=== PATIENT | male | born 1945 | race African-American/Black ===

== ENCOUNTER → 2019-12-30 | Outpatient (CLI) | payer BC | END | disposition home or self-care (01) | LOC: LAB 10:31 | PROVIDERS: ATTEND Specialist | DX: Z01.812 Encounter for preprocedural laboratory examination (principal); R05 Cough; Z20.828 Contact with and (suspected) exposure to other viral communicable diseases | CPT/HCPCS: C9803; U0003 ==

== ENCOUNTER → 2020-01-06 | Outpatient (CLI) | payer BC, OTHER ==
[~2020-01-06] MED LIST: AMLO5TAB88 PO; APIX5TAB PO; ASPI-1497 MT; DOXA1TAB2 PO; DUTA1CPM4 MT; HYDR12.54 MT; OLME20TA13 PO
== END | disposition home or self-care (01) ==
LOC: LAB 08:55
PROVIDERS: ATTEND Specialist
DX: Z01.812 Encounter for preprocedural laboratory examination (principal); Z20.828 Contact with and (suspected) exposure to other viral communicable diseases
CPT/HCPCS: C9803; U0003

== ENCOUNTER 2020-01-07 09:20 | Day surgery (SDC) | payer BC, OTHER ==
[~2020-01-07] VITALS: Ht 182.9 cm; Wt 127.0 kg
[2020-01-07] MEDS ORDERED: MIDAZOLAM HCL 2 MG/2 ML VIAL ONE ×2 (09:29→10:06)
[2020-01-07] MEDS ORDERED: FENTANYL CITRATE/PF 50MCG/ML 2ML VIAL ONE (09:29)
[2020-01-07] MEDS ORDERED: NICARDIPINE 100MCG/ML 10ML VIAL (CATH LAB) IV ONE (09:30)
[2020-01-07] MEDS ORDERED: IODIXANOL 320MG/ML 100 ML BOTTLE IV ONE (09:30)
[2020-01-07] MEDS ORDERED: NITROGLYCERIN 50MCG/ML 10ML VIAL (CATH LAB) IV ONE (09:30)
[2020-01-07] MEDS ORDERED: LIDOCAINE HCL 1% 20ML VIAL (Pyxis) INJ ONE (09:30)
[2020-01-07] MEDS ORDERED: HEPARIN SODIUM 1,000 UNIT/1ML VIAL IV ONE (09:30)
[2020-01-07] MEDS ORDERED: MORPHINE SULFATE 2 MG/ML CPJ (NOT FOR IM USE) IV PRN (10:45)
[2020-01-07] MEDS ORDERED: ATROPINE SULFATE 1MG/10ML SYR IV PRN (10:45)
[2020-01-07] MEDS ORDERED: ACETAMINOPHEN 325MG TABLET PO PRN (10:45)
[2020-01-07] MEDS ORDERED: ONDANSETRON HCL 4MG/2ML INJ IV PRN (10:45)
== END 2020-01-07 15:20 | disposition home or self-care (01) ==
LOC: CCL 09:20
PROVIDERS: ATTEND Specialist
DX: I25.10 Atherosclerotic heart disease of native coronary artery without angina pectoris (principal); I10 Essential (primary) hypertension; I48.91 Unspecified atrial fibrillation; E78.2 Mixed hyperlipidemia; G47.33 Obstructive sleep apnea (adult) (pediatric); E66.9 Obesity, unspecified; Z79.82 Long term (current) use of aspirin; Z79.899 Other long term (current) drug therapy; Z98.890 Other specified postprocedural states; Z68.38 Body mass index [BMI] 38.0-38.9, adult
CPT/HCPCS: 93454; C1769; C1887; C1893; J1644; J2250; J3010; J3490; Q9967

== ENCOUNTER 2020-12-15 15:09 | Emergency (ER) | payer BC, OTHER ==
[~2020-12-15] VITALS: Ht 185.4 cm; Wt 122.5 kg
[2020-12-15] MEDS ORDERED: ONDANSETRON HCL 4MG/2ML INJ IV STA (16:25)
[2020-12-15] MEDS ORDERED: MORPHINE SULFATE 4 MG/ML CPJ (NOT FOR IM USE) IV STA (16:25)
[2020-12-15] MEDS ORDERED: SODIUM CHLORIDE 0.9% 1,000 ML IV ONE (16:30)
[2020-12-15] MEDS ORDERED: AMLODIPINE 5MG TABLET PO SCH (16:30)
[2020-12-15 16:52] LABS: BASOPHILS % 0.5 % (0.0-2.0); EOSINOPHILS % 0.1 % (0.0-5.0); HEMATOCRIT. 30.6 % (42.0-52.0); HEMOGLOBIN. 10.1 g/dL (14.0-18.0); LYMPHOCYTES % 7.1 % (20.0-50.0); MEAN CORPUSCULAR HEMOGLOBIN 24.4 pg (28.0-32.0); MEAN PLATELET VOLUME 7.6 fl (7.4-10.4); NEUTROPHILS % 81.3 % (40.0-76.0); PLATELET 251 x1000/uL (130-400); RED BLOOD CELL COUNT 4.13 mill/uL (4.7-6.1); RED CELL DISTRIBUTION WIDTH 17.9 % (11.6-14.6)
[2020-12-15 16:58] LABS: CHLORIDE 105 mEq/L (98-107)
[2020-12-15 17:42] LABS: CLARITY URINE CLEAR (CLEAR); COLOR URINE YELLOW (YELLOW); KETONES URINE NEGATIVE (NEGATIVE); LEUKOCYTE ESTERASE URINE TRACE (NEGATIVE); NITRITE URINE NEGATIVE (NEGATIVE); OCCULT BLOOD URINE TRACE (NEGATIVE); PROTEIN URINE TRACE (NEGATIVE); SPECIFIC GRAVITY URINE 1.015 (1.005-1.030)
[2020-12-15 17:52] LABS: *AMPHETAMINES SCREEN URINE NEGATIVE (NEGATIVE); *BARBITURATES SCREEN URINE NEGATIVE (NEGATIVE); *BENZODIAZEPINES SCREEN URINE NEGATIVE (NEGATIVE); *COCAINE SCREEN URINE NEGATIVE (NEGATIVE)
[2020-12-15 17:53] LABS: CANNABINOID URINE SCREEN NEGATIVE (NEGATIVE); METHADONE URINE SCREEN NEGATIVE (NEGATIVE); OPIATES URINE SCREEN NEGATIVE (NEGATIVE); PHENCYCLIDINE URINE SCREEN NEGATIVE (NEGATIVE)
[2020-12-15] MEDS ORDERED: IBUP-2028 MT (20:15)
[2020-12-15] MEDS ORDERED: CIPR500T5 MT (20:18)
[2020-12-15] MEDS ORDERED: ACET-2708 MT (20:20)
[2020-12-15 20:45] VITALS: BP 127/56
[2020-12-16] MEDS ORDERED: METOPROLOL TARTRATE 25MG TABLET PO SCH (09:00)
== END 2020-12-15 21:43 | disposition home or self-care (01) ==
LOC: ER 15:09
DX: M79.89 Other specified soft tissue disorders (principal); N39.0 Urinary tract infection, site not specified; I10 Essential (primary) hypertension; Z79.899 Other long term (current) drug therapy; Z79.82 Long term (current) use of aspirin
CPT/HCPCS: 36415; 71045; 74176; 80053; 80305; 81003; 83690; 83880; 85025; 93005; 93970; 96360; 96361; 99285; J7030

== ENCOUNTER 2020-12-20 12:02 | Inpatient (IN) | payer BC, OTHER ==
[~2020-12-20] VITALS: Ht 182.9 cm; Wt 113.4 kg
[~2020-12-20 12:02] MED LIST changes: +ACET-2708 MT; +CIPR500T5 MT; +IBUP-2028 MT
[2020-12-20] MEDS ORDERED: SODIUM CHLORIDE 0.9% 500 ML IV NR (12:15)
[2020-12-20 13:06] LABS: EOSINOPHILS % 0.1 % (0.0-5.0); HEMATOCRIT. 29.8 % (42.0-52.0); HEMOGLOBIN. 9.9 g/dL (14.0-18.0); LYMPHOCYTES % 7.6 % (20.0-50.0); MEAN CORPUSCULAR HEMOGLOBIN 24.4 pg (28.0-32.0); MEAN CORPUSCULAR VOLUME 73.7 fL (80.0-94.0); MEAN PLATELET VOLUME 7.6 fl (7.4-10.4); MONOCYTES % 11.2 % (2.0-8.0); NEUTROPHILS % 80.1 % (40.0-76.0); PLATELET 352 x1000/uL (130-400); RED BLOOD CELL COUNT 4.05 mill/uL (4.7-6.1); RED CELL DISTRIBUTION WIDTH 18.5 % (11.6-14.6)
[2020-12-20 13:12] LABS: CHLORIDE 106 mEq/L (98-107)
[2020-12-20 13:19] LABS: CLARITY URINE CLEAR (CLEAR); COLOR URINE YELLOW (YELLOW); KETONES URINE NEGATIVE (NEGATIVE); LEUKOCYTE ESTERASE URINE NEGATIVE (NEGATIVE); NITRITE URINE NEGATIVE (NEGATIVE); OCCULT BLOOD URINE 2+ (NEGATIVE); PH URINE 5.5 (4.5-8.0); PROTEIN URINE NEGATIVE (NEGATIVE); SPECIFIC GRAVITY URINE 1.011 (1.005-1.030)
[2020-12-20] MEDS ORDERED: FUROSEMIDE 40MG/4ML VIAL IVP NR (14:00)
[2020-12-20] MEDS ORDERED: IPRATROPIUM/ALBUTEROL 0.5-3(2.5)MG/3ML NEB HHN PRN (15:30)
[2020-12-20] MEDS ORDERED: HYDROCODONE/ACETAMINOPHEN 5/325MG TABLET PO PRN (15:30)
[2020-12-20] MEDS ORDERED: ONDANSETRON HCL 4MG/2ML INJ IV PRN (15:30)
[2020-12-20] MEDS ORDERED: LORAZEPAM 0.5MG TABLET PO PRN (15:30)
[2020-12-20] MEDS ORDERED: CLONIDINE 0.1MG TABLET PO PRN (15:30)
[2020-12-20 16:00] VITALS: BP 149/60
[2020-12-20] MEDS: ENOXAPARIN 40MG/0.4ML SYR SUBCUT SCH ×2 (18:00→18:17)
[2020-12-20] MEDS: FUROSEMIDE 40MG/4ML VIAL IV SCH (18:16)
[2020-12-20 20:00] VITALS: BP 105/86
[2020-12-20 21:30] VITALS: BP 105/86
[2020-12-20] MEDS ORDERED: BEMP180T PO (22:20)
[2020-12-20] MEDS ORDERED: METO-396 PO (22:20)
[2020-12-20 23:58] LABS: *AMPHETAMINES SCREEN URINE NEGATIVE (NEGATIVE); *BARBITURATES SCREEN URINE NEGATIVE (NEGATIVE); *BENZODIAZEPINES SCREEN URINE NEGATIVE (NEGATIVE); *COCAINE SCREEN URINE NEGATIVE (NEGATIVE); METHADONE URINE SCREEN NEGATIVE (NEGATIVE); OPIATES URINE SCREEN NEGATIVE (NEGATIVE); PHENCYCLIDINE URINE SCREEN NEGATIVE (NEGATIVE)
[2020-12-20 23:59] LABS: CANNABINOID URINE SCREEN NEGATIVE (NEGATIVE)
[2020-12-21] VITALS: BP 123/44
[2020-12-21 04:00] VITALS: BP 110/67
[2020-12-21] MEDS: CARVEDILOL 3.125 MG TABLET PO SCH ×3 (04:05→21:08)
[2020-12-21] MEDS: ENOXAPARIN 40MG/0.4ML SYR SUBCUT SCH (06:13)
[2020-12-21] MEDS: FUROSEMIDE 40MG/4ML VIAL IV SCH ×2 (06:13→17:50)
[2020-12-21 06:18] LABS: BASOPHILS % 0.3 % (0.0-2.0); EOSINOPHILS % 0.4 % (0.0-5.0); HEMOGLOBIN. 9.2 g/dL (14.0-18.0); LYMPHOCYTES % 8.6 % (20.0-50.0); MEAN CORPUSCULAR HEMOGLOBIN 24.4 pg (28.0-32.0); MEAN CORPUSCULAR VOLUME 74.1 fL (80.0-94.0); MEAN PLATELET VOLUME 7.8 fl (7.4-10.4); MONOCYTES % 11.3 % (2.0-8.0); NEUTROPHILS % 79.4 % (40.0-76.0); PLATELET 362 x1000/uL (130-400); RED BLOOD CELL COUNT 3.79 mill/uL (4.7-6.1); RED CELL DISTRIBUTION WIDTH 18.4 % (11.6-14.6)
[2020-12-21 08:00] VITALS: BP 99/65
[2020-12-21] MEDS: DOXAZOSIN MESYLATE 2MG TABLET PO SCH ×2 (11:00→17:50)
[2020-12-21] MEDS ORDERED: NALOXONE HCL 0.4MG/ML VIAL IV PRN (11:30)
[2020-12-21] MEDS ORDERED: ENOXAPARIN 120MG/0.8ML SYR SUBCUT SCH (11:30)
[2020-12-21 12:00] VITALS: BP 103/52
[2020-12-21] MEDS: HYDROCHLOROTHIAZIDE 12.5MG CAPSULE PO SCH (13:00)
[2020-12-21] MEDS: FERROUS SULFATE 325MG TABLET PO SCH ×2 (13:24→17:54)
[2020-12-21 14:49] LABS: VITAMIN B12 SERUM 449 pg/mL (211-911)
[2020-12-21 15:23] LABS: FERRITIN 1500 ng/mL (22-322)
[2020-12-21 16:00] VITALS: BP 155/71
[2020-12-21] MEDS: DOCUSATE SODIUM 100MG CAPSULE PO PRN (17:54)
[2020-12-21 20:00] VITALS: BP 120/65
[2020-12-21] MEDS: NEXLETOL PO SCH (21:09)
[2020-12-22] VITALS: BP 118/61
[2020-12-22 04:00] VITALS: BP 143/57
[2020-12-22] MEDS: FUROSEMIDE 40MG/4ML VIAL IV SCH (06:20)
[2020-12-22 07:01] LABS: BASOPHILS % 0.3 % (0.0-2.0); EOSINOPHILS % 0.2 % (0.0-5.0); HEMATOCRIT. 30.5 % (42.0-52.0); HEMOGLOBIN. 9.8 g/dL (14.0-18.0); LYMPHOCYTES % 9.4 % (20.0-50.0); MEAN CORPUSCULAR HEMOGLOBIN 24.2 pg (28.0-32.0); MONOCYTES % 10.7 % (2.0-8.0); NEUTROPHILS % 79.4 % (40.0-76.0); PLATELET 395 x1000/uL (130-400); RED BLOOD CELL COUNT 4.06 mill/uL (4.7-6.1); RED CELL DISTRIBUTION WIDTH 18.4 % (11.6-14.6)
[2020-12-22 07:08] LABS: INR 1.3
[2020-12-22] MEDS: CARVEDILOL 3.125 MG TABLET PO SCH ×2 (09:18→21:31)
[2020-12-22] MEDS: FERROUS SULFATE 325MG TABLET PO SCH ×2 (09:18→17:17)
[2020-12-22] MEDS: HYDROCHLOROTHIAZIDE 12.5MG CAPSULE PO SCH (09:18)
[2020-12-22] MEDS: DOXAZOSIN MESYLATE 2MG TABLET PO SCH ×2 (09:19→17:19)
[2020-12-22] MEDS: NEXLETOL PO SCH (09:24)
[2020-12-22 12:00] VITALS: BP 133/68
[2020-12-22 16:00] VITALS: BP 133/65
[2020-12-22] MEDS: DOCUSATE SODIUM 100MG CAPSULE PO PRN (17:42)
[2020-12-22] MEDS: DEXAMETHASONE 4MG/ML 1ML VIAL IV SCH (18:31)
[2020-12-22 20:00] VITALS: BP 143/65
[2020-12-22] MEDS: LOSARTAN POTASSIUM 25 MG TABLET PO SCH (21:31)
[2020-12-23] VITALS (52 sets, daily range): BP systolic 99–144; BP diastolic 53–91
[2020-12-23] MEDS: DEXAMETHASONE 4MG/ML 1ML VIAL IV SCH ×4 (00:53→17:10)
[2020-12-23 06:23] LABS: HEMATOCRIT. 29.8 % (42.0-52.0); HEMOGLOBIN. 9.6 g/dL (14.0-18.0); MEAN CORPUSCULAR HEMOGLOBIN 23.8 pg (28.0-32.0); MEAN CORPUSCULAR VOLUME 73.9 fL (80.0-94.0); MEAN PLATELET VOLUME 7.7 fl (7.4-10.4); PLATELET 440 x1000/uL (130-400); RED BLOOD CELL COUNT 4.03 mill/uL (4.7-6.1); RED CELL DISTRIBUTION WIDTH 19.2 % (11.6-14.6)
[2020-12-23 06:29] LABS: CHLORIDE 102 mEq/L (98-107)
[2020-12-23] MEDS ORDERED: LIDOCAINE HCL/EPINEPHRINE 1%-EPI 1:100,000 20 ML VIAL ONE ×3 (06:29→06:54)
[2020-12-23] MEDS ORDERED: THROMBIN (BOVINE) 5000 UNITS/VIAL TOP ONE (06:30)
[2020-12-23] MEDS ORDERED: POLYMYXIN B SULFATE 500000 UNITS/VIAL ONE (06:31)
[2020-12-23] MEDS ORDERED: GENTAMICIN SULF 40MG/ML 2ML VIAL ONE (06:37)
[2020-12-23] MEDS ORDERED: EPINEPHRINE 1:1000 1 MG/ML AMP ONE (07:13)
[2020-12-23] MEDS ORDERED: ROCURONIUM BROMIDE 10MG/ML VIAL 5ML IV ONE (07:25)
[2020-12-23] MEDS: FERROUS SULFATE 325MG TABLET PO SCH ×3 (07:40→17:00)
[2020-12-23] MEDS ORDERED: HYDROMORPHONE HCL/PF 2MG/ML (OR) ONE (07:51)
[2020-12-23] MEDS ORDERED: DEXAMETHASONE 4MG/ML 1ML VIAL ONE (08:02)
[2020-12-23] MEDS ORDERED: CEFAZOLIN SODIUM 1000MG/VIAL ONE (08:02)
[2020-12-23] MEDS ORDERED: ALBUMIN HUMAN 25GM/100ML (25%) IV ONE (08:20)
[2020-12-23] MEDS ORDERED: AMIODARONE HCL 50MG/ML 3ML VIAL IV ONE (08:20)
[2020-12-23] MEDS ORDERED: CALCIUM CHLORIDE 1GM/10ML SYR IV ONE (08:26)
[2020-12-23] MEDS: CARVEDILOL 3.125 MG TABLET PO SCH ×2 (09:00→21:00)
[2020-12-23] MEDS: DOXAZOSIN MESYLATE 2MG TABLET PO SCH ×2 (09:00→17:00)
[2020-12-23] MEDS: FUROSEMIDE 20MG TABLET PO SCH (09:00)
[2020-12-23] MEDS: LOSARTAN POTASSIUM 25 MG TABLET PO SCH ×2 (09:00→21:00)
[2020-12-23] MEDS: NEXLETOL PO SCH (09:00)
[2020-12-23] MEDS ORDERED: GLYCOPYRROLATE 0.2 MG/ML 2ML VIAL ONE (10:27)
[2020-12-23] MEDS ORDERED: NEOSTIGMINE METHYLSULFATE 1MG/ML 10 ML VIAL ONE (10:27)
[2020-12-23 10:40] LABS: PLATELET ESTIMATE INCREASED
[2020-12-23] MEDS: DEXT 5%/LACTATED RINGERS 1,000 ML IV SCH ×2 (11:40→22:57)
[2020-12-23] MEDS: MORPHINE SULFATE 4 MG/ML CPJ (NOT FOR IM USE) IV PRN (11:41)
[2020-12-23] MEDS ORDERED: DIPHENHYDRAMINE INJ IV PRN (12:00)
[2020-12-23] MEDS ORDERED: NALOXONE INJ IV PRN (12:00)
[2020-12-23] MEDS ORDERED: ONDANSETRON INJ IV PRN (12:00)
[2020-12-23] MEDS: NICARDIPINE 100 MG in SODIUM CHLORIDE 0.9% 60 ML IV PRN ×2 (12:03→20:24)
[2020-12-23] MEDS ORDERED: HYDROMORPHONE PCA 10MG/50ML IV PRN (13:00)
[2020-12-23] MEDS ORDERED: CEFAZOLIN SODIUM 1000MG/VIAL IV SCH (14:00)
[2020-12-23] MEDS: CEFAZOLIN 1000MG PREMIX 50 ML IV SCH ×2 (14:17→22:53)
[2020-12-24] VITALS (98 sets, daily range): BP systolic 0–152; BP diastolic 0–146
[2020-12-24] MEDS: DEXAMETHASONE 4MG/ML 1ML VIAL IV SCH ×4 (01:00→18:00)
[2020-12-24] MEDS: CEFAZOLIN 1000MG PREMIX 50 ML IV SCH ×3 (05:25→22:39)
[2020-12-24] MEDS: NICARDIPINE 100 MG in SODIUM CHLORIDE 0.9% 60 ML IV PRN ×2 (05:26→22:42)
[2020-12-24 06:11] LABS: CHLORIDE 107 mEq/L (98-107)
[2020-12-24 06:23] LABS: HEMATOCRIT. 26.4 % (42.0-52.0); HEMOGLOBIN. 8.4 g/dL (14.0-18.0); MEAN CORPUSCULAR HEMOGLOBIN 23.3 pg (28.0-32.0); MEAN CORPUSCULAR VOLUME 73.3 fL (80.0-94.0); MEAN PLATELET VOLUME 7.8 fl (7.4-10.4); PLATELET 409 x1000/uL (130-400); RED CELL DISTRIBUTION WIDTH 18.8 % (11.6-14.6)
[2020-12-24] MEDS: FERROUS SULFATE 325MG TABLET PO SCH ×3 (06:57→19:20)
[2020-12-24 07:56] LABS: PLATELET ESTIMATE NORMAL
[2020-12-24] MEDS: LOSARTAN POTASSIUM 25 MG TABLET PO SCH ×2 (10:13→20:24)
[2020-12-24] MEDS: CARVEDILOL 3.125 MG TABLET PO SCH ×2 (10:13→20:24)
[2020-12-24] MEDS: DEXT 5%/LACTATED RINGERS 1,000 ML IV SCH ×2 (10:19→19:21)
[2020-12-24] MEDS: FUROSEMIDE 20MG TABLET PO SCH (11:03)
[2020-12-24] MEDS: DOXAZOSIN MESYLATE 2MG TABLET PO SCH ×2 (11:03→19:20)
[2020-12-24] MEDS: NEXLETOL PO SCH (11:04)
[2020-12-24] MEDS: DOCUSATE SODIUM 250MG CAPSULE PO SCH (19:21)
[2020-12-24] MEDS ORDERED: DEXAMETHASONE 4MG/ML 1ML VIAL IV NR (19:30)
[2020-12-25] VITALS (69 sets, daily range): BP systolic 70–155; BP diastolic 35–141
[2020-12-25] MEDS: DEXT 5%/LACTATED RINGERS 1,000 ML IV SCH ×2 (03:00→13:47)
[2020-12-25 05:29] LABS: HEMATOCRIT. 29.4 % (42.0-52.0); HEMOGLOBIN. 9.5 g/dL (14.0-18.0); MEAN CORPUSCULAR HEMOGLOBIN 23.7 pg (28.0-32.0); MEAN CORPUSCULAR VOLUME 73.4 fL (80.0-94.0); MEAN PLATELET VOLUME 7.6 fl (7.4-10.4); PLATELET 459 x1000/uL (130-400)
[2020-12-25 05:30] LABS: CHLORIDE 104 mEq/L (98-107)
[2020-12-25] MEDS: FERROUS SULFATE 325MG TABLET PO SCH ×3 (06:30→17:44)
[2020-12-25] MEDS: CEFAZOLIN 1000MG PREMIX 50 ML IV SCH ×2 (06:30→13:46)
[2020-12-25] MEDS: POLYETHYLENE GLYCOL 3350 (17GM) 1 DOSE PACK PO SCH (09:00)
[2020-12-25] MEDS: DOCUSATE SODIUM 250MG CAPSULE PO SCH ×2 (09:00→17:00)
[2020-12-25] MEDS: DOXAZOSIN MESYLATE 2MG TABLET PO SCH ×2 (09:56→17:44)
[2020-12-25] MEDS: CARVEDILOL 3.125 MG TABLET PO SCH (09:57)
[2020-12-25] MEDS: LOSARTAN POTASSIUM 25 MG TABLET PO SCH ×2 (09:57→20:51)
[2020-12-25] MEDS: FUROSEMIDE 20MG TABLET PO SCH (09:57)
[2020-12-25] MEDS: NEXLETOL PO SCH (09:59)
[2020-12-25 10:13] LABS: PLATELET ESTIMATE INCREASED
[2020-12-25] MEDS: ENOXAPARIN 120MG/0.8ML SYR SUBCUT SCH ×2 (10:47→20:52)
[2020-12-25] MEDS ORDERED: AMLODIPINE 5MG TABLET PO SCH (13:00)
[2020-12-25] MEDS ORDERED: AMLODIPINE 5MG TABLET PO NR (13:15)
[2020-12-25 15:47] LABS: INR 1.4; PROTHROMBIN TIME 14.2 sec (9.6-11.0)
[2020-12-25] MEDS: AMLODIPINE 5MG TABLET PO SCH (20:52)
[2020-12-25] MEDS: CARVEDILOL 6.25 MG TABLET PO SCH (20:52)
[2020-12-26] VITALS (24 sets, daily range): BP systolic 113–155; BP diastolic 53–82
[2020-12-26 05:16] LABS: HEMATOCRIT. 30.1 % (42.0-52.0); HEMOGLOBIN. 9.8 g/dL (14.0-18.0); MEAN CORPUSCULAR HEMOGLOBIN 24.1 pg (28.0-32.0); MEAN CORPUSCULAR VOLUME 73.6 fL (80.0-94.0); MEAN PLATELET VOLUME 7.5 fl (7.4-10.4); PLATELET 453 x1000/uL (130-400); RED BLOOD CELL COUNT 4.08 mill/uL (4.7-6.1); RED CELL DISTRIBUTION WIDTH 19.3 % (11.6-14.6)
[2020-12-26 05:20] LABS: CHLORIDE 106 mEq/L (98-107)
[2020-12-26] MEDS: FERROUS SULFATE 325MG TABLET PO SCH ×2 (07:17→17:29)
[2020-12-26] MEDS: DOXAZOSIN MESYLATE 2MG TABLET PO SCH ×2 (08:27→17:29)
[2020-12-26] MEDS: CARVEDILOL 6.25 MG TABLET PO SCH ×2 (08:27→20:27)
[2020-12-26] MEDS: LOSARTAN POTASSIUM 25 MG TABLET PO SCH ×2 (08:28→20:57)
[2020-12-26] MEDS: ENOXAPARIN 120MG/0.8ML SYR SUBCUT SCH ×2 (08:28→20:27)
[2020-12-26] MEDS: AMLODIPINE 5MG TABLET PO SCH ×2 (08:28→20:26)
[2020-12-26] MEDS: DOCUSATE SODIUM 250MG CAPSULE PO SCH ×2 (08:29→17:00)
[2020-12-26] MEDS: POLYETHYLENE GLYCOL 3350 (17GM) 1 DOSE PACK PO SCH (08:29)
[2020-12-26] MEDS: NEXLETOL PO SCH (08:29)
[2020-12-26] MEDS ORDERED: AMLODIPINE 5MG TABLET PO SCH (09:00)
[2020-12-26 10:24] LABS: PLATELET ESTIMATE SLIGHTLY INCREASED
[2020-12-26] MEDS: IRON SUCROSE COMPLEX 100 MG/5 ML ML IV SCH (20:57)
[2020-12-27] VITALS: BP 106/64
[2020-12-27 04:00] VITALS: BP 124/74
[2020-12-27 08:00] VITALS: BP 154/82
[2020-12-27] MEDS: AMLODIPINE 5MG TABLET PO SCH ×2 (09:30→21:38)
[2020-12-27] MEDS: DOCUSATE SODIUM 250MG CAPSULE PO SCH ×2 (09:30→16:25)
[2020-12-27] MEDS: LOSARTAN POTASSIUM 25 MG TABLET PO SCH ×2 (09:30→21:38)
[2020-12-27] MEDS: ENOXAPARIN 120MG/0.8ML SYR SUBCUT SCH ×2 (09:30→21:37)
[2020-12-27] MEDS: FERROUS SULFATE 325MG TABLET PO SCH ×3 (09:30→17:42)
[2020-12-27] MEDS: DOXAZOSIN MESYLATE 2MG TABLET PO SCH ×2 (09:31→17:43)
[2020-12-27] MEDS: CARVEDILOL 6.25 MG TABLET PO SCH ×2 (09:31→21:50)
[2020-12-27] MEDS: POLYETHYLENE GLYCOL 3350 (17GM) 1 DOSE PACK PO SCH (09:31)
[2020-12-27] MEDS: NEXLETOL PO SCH (10:38)
[2020-12-27 12:00] VITALS: BP 120/60
[2020-12-27 16:00] VITALS: BP 117/69
[2020-12-27 20:00] VITALS: BP 115/74
[2020-12-27] MEDS: IRON SUCROSE COMPLEX 100 MG/5 ML ML IV SCH (22:45)
[2020-12-28] VITALS: BP 127/63
[2020-12-28] MEDS: MORPHINE SULFATE 4 MG/ML CPJ (NOT FOR IM USE) IV PRN (00:51)
[2020-12-28 04:00] VITALS: BP 125/70
[2020-12-28 06:53] LABS: CHLORIDE 102 mEq/L (98-107); HEMATOCRIT. 33.9 % (42.0-52.0); HEMOGLOBIN. 10.7 g/dL (14.0-18.0); MEAN CORPUSCULAR HEMOGLOBIN 23.4 pg (28.0-32.0); MEAN CORPUSCULAR VOLUME 74.3 fL (80.0-94.0); MEAN PLATELET VOLUME 7.9 fl (7.4-10.4); PLATELET 456 x1000/uL (130-400); RED BLOOD CELL COUNT 4.56 mill/uL (4.7-6.1); RED CELL DISTRIBUTION WIDTH 19.4 % (11.6-14.6)
[2020-12-28 08:20] VITALS: BP 132/70
[2020-12-28] MEDS: DOCUSATE SODIUM 250MG CAPSULE PO SCH ×2 (09:00→17:00)
[2020-12-28] MEDS: POLYETHYLENE GLYCOL 3350 (17GM) 1 DOSE PACK PO SCH (09:00)
[2020-12-28] MEDS: AMLODIPINE 5MG TABLET PO SCH ×2 (09:10→21:18)
[2020-12-28] MEDS: CARVEDILOL 6.25 MG TABLET PO SCH ×2 (09:11→21:19)
[2020-12-28] MEDS: LOSARTAN POTASSIUM 25 MG TABLET PO SCH ×2 (09:11→21:18)
[2020-12-28] MEDS: ENOXAPARIN 120MG/0.8ML SYR SUBCUT SCH ×2 (09:13→21:19)
[2020-12-28] MEDS: DOXAZOSIN MESYLATE 2MG TABLET PO SCH ×2 (09:22→17:09)
[2020-12-28] MEDS: FERROUS SULFATE 325MG TABLET PO SCH ×3 (09:22→17:09)
[2020-12-28 11:26] VITALS: BP 121/66
[2020-12-28 15:54] VITALS: BP 145/58
[2020-12-28] MEDS: IRON SUCROSE COMPLEX 100 MG/5 ML ML IV SCH ×2 (19:45→21:44)
[2020-12-28 19:52] LABS: PLATELET ESTIMATE INCREASED
[2020-12-28 20:00] VITALS: BP 151/64
[2020-12-28] MEDS ORDERED: IRON SUCROSE COMPLEX 100 MG/5 ML ML IV SCH (20:45)
[2020-12-29] VITALS: BP 120/62
[2020-12-29 04:00] VITALS: BP 126/68
[2020-12-29 07:07] LABS: HEMATOCRIT. 32.9 % (42.0-52.0); HEMOGLOBIN. 10.3 g/dL (14.0-18.0); MEAN CORPUSCULAR HEMOGLOBIN 23.6 pg (28.0-32.0); MEAN CORPUSCULAR VOLUME 75.2 fL (80.0-94.0); PLATELET 403 x1000/uL (130-400); RED BLOOD CELL COUNT 4.37 mill/uL (4.7-6.1); RED CELL DISTRIBUTION WIDTH 19.2 % (11.6-14.6)
[2020-12-29 07:21] LABS: CHLORIDE 105 mEq/L (98-107)
[2020-12-29 08:00] VITALS: BP 110/64
[2020-12-29] MEDS: ENOXAPARIN 120MG/0.8ML SYR SUBCUT SCH ×2 (10:48→22:01)
[2020-12-29] MEDS: LOSARTAN POTASSIUM 25 MG TABLET PO SCH ×2 (10:49→22:01)
[2020-12-29] MEDS: CARVEDILOL 6.25 MG TABLET PO SCH ×2 (10:49→22:01)
[2020-12-29] MEDS: DOCUSATE SODIUM 250MG CAPSULE PO SCH ×2 (10:49→17:00)
[2020-12-29] MEDS: AMLODIPINE 5MG TABLET PO SCH ×2 (10:50→22:00)
[2020-12-29] MEDS: POLYETHYLENE GLYCOL 3350 (17GM) 1 DOSE PACK PO SCH (10:52)
[2020-12-29] MEDS: DOXAZOSIN MESYLATE 2MG TABLET PO SCH ×3 (10:53→18:06)
[2020-12-29] MEDS: FERROUS SULFATE 325MG TABLET PO SCH ×3 (10:53→18:06)
[2020-12-29] MEDS: NEXLETOL PO SCH ×2 (10:54→10:56)
[2020-12-29 12:00] VITALS: BP 128/90
[2020-12-29 16:00] VITALS: BP_SYST 123; BP_SYST 128; BP_DIAS 56; BP_DIAS 90
[2020-12-29 20:00] VITALS: BP 141/57
[2020-12-29 23:02] LABS: PLATELET ESTIMATE INCREASED
[2020-12-30] VITALS (7 sets, daily range): BP systolic 105–137; BP diastolic 52–65
[2020-12-30 07:56] LABS: CHLORIDE 104 mEq/L (98-107)
[2020-12-30 08:00] LABS: HEMATOCRIT. 29.6 % (42.0-52.0); HEMOGLOBIN. 9.3 g/dL (14.0-18.0); MEAN CORPUSCULAR HEMOGLOBIN 23.4 pg (28.0-32.0); MEAN CORPUSCULAR VOLUME 74.1 fL (80.0-94.0); MEAN PLATELET VOLUME 8.1 fl (7.4-10.4); PLATELET 375 x1000/uL (130-400); RED BLOOD CELL COUNT 3.99 mill/uL (4.7-6.1); RED CELL DISTRIBUTION WIDTH 19.6 % (11.6-14.6)
[2020-12-30] MEDS: DOCUSATE SODIUM 250MG CAPSULE PO SCH ×3 (09:00→17:00)
[2020-12-30] MEDS: POLYETHYLENE GLYCOL 3350 (17GM) 1 DOSE PACK PO SCH ×2 (09:00→10:02)
[2020-12-30] MEDS: NEXLETOL PO SCH (10:01)
[2020-12-30] MEDS: LOSARTAN POTASSIUM 25 MG TABLET PO SCH ×2 (10:01→20:44)
[2020-12-30] MEDS: FERROUS SULFATE 325MG TABLET PO SCH ×3 (10:01→18:05)
[2020-12-30] MEDS: AMLODIPINE 5MG TABLET PO SCH ×2 (10:02→20:43)
[2020-12-30] MEDS: CARVEDILOL 6.25 MG TABLET PO SCH ×2 (10:03→20:38)
[2020-12-30] MEDS: ACETAMINOPHEN 325MG TABLET PO PRN ×2 (10:03→20:44)
[2020-12-30] MEDS: DOXAZOSIN MESYLATE 2MG TABLET PO SCH ×2 (10:03→17:00)
[2020-12-30] MEDS: ENOXAPARIN 120MG/0.8ML SYR SUBCUT SCH ×2 (10:04→20:44)
[2020-12-30 19:18] LABS: PLATELET ESTIMATE NORMAL
[2020-12-30] MEDS: HYDROCODONE/ACETAMINOPHEN 5/325MG TABLET PO PRN (22:54)
[2020-12-31] VITALS (53 sets, daily range): BP systolic 89–277; BP diastolic -4–273
[2020-12-31] MEDS: HYDROCODONE/ACETAMINOPHEN 5/325MG TABLET PO PRN (03:42)
[2020-12-31] MEDS: POLYETHYLENE GLYCOL 3350 (17GM) 1 DOSE PACK PO SCH (09:00)
[2020-12-31] MEDS: DOCUSATE SODIUM 250MG CAPSULE PO SCH ×3 (09:00→17:00)
[2020-12-31] MEDS: AMLODIPINE 5MG TABLET PO SCH (09:29)
[2020-12-31] MEDS: ENOXAPARIN 120MG/0.8ML SYR SUBCUT SCH (09:29)
[2020-12-31] MEDS: LOSARTAN POTASSIUM 25 MG TABLET PO SCH (09:29)
[2020-12-31] MEDS: FERROUS SULFATE 325MG TABLET PO SCH ×3 (09:29→17:00)
[2020-12-31] MEDS: CARVEDILOL 6.25 MG TABLET PO SCH (09:30)
[2020-12-31] MEDS: DOXAZOSIN MESYLATE 2MG TABLET PO SCH ×2 (09:37→17:00)
[2020-12-31] MEDS: NEXLETOL PO SCH (09:38)
[2020-12-31] MEDS: ACETAMINOPHEN 325MG TABLET PO PRN (10:23)
[2020-12-31] MEDS ORDERED: PHENYLEPHRINE 100 MG in DEXT 5% WATER 250 ML IV PRN (12:00)
[2020-12-31] MEDS ORDERED: NOREPINEPHRINE 8 MG in DEXTROSE 5% WATER 250 ML IV PRN (12:00)
[2020-12-31] MEDS ORDERED: DEXAMETHASONE 10 MG/ML VIAL IV NR (12:30)
[2020-12-31] MEDS ORDERED: LIDOCAINE HCL/EPINEPHRINE 1%-EPI 1:100,000 20 ML VIAL ONE ×2 (12:37→12:38)
[2020-12-31] MEDS ORDERED: GENTAMICIN SULF 40MG/ML 2ML VIAL ONE (12:37)
[2020-12-31] MEDS ORDERED: THROMBIN (BOVINE) 5000 UNITS/VIAL TOP ONE (12:38)
[2020-12-31] MEDS ORDERED: BACITRACIN 15GM TUBE TOP ONE (12:38)
[2020-12-31] MEDS ORDERED: SODIUM CHLORIDE 0.9% IRRIG SOL 2,000 ML IR ONE (12:38)
[2020-12-31] MEDS: PROTAMINE SULFATE 10MG/ML VIAL 25ML IV NR ×2 (12:45→12:49)
[2020-12-31] MEDS ORDERED: EPINEPHRINE 5 MG in SODIUM CHLORIDE 0.9% 250 ML IV ONE (13:15)
[2020-12-31] MEDS ORDERED: ROCURONIUM BROMIDE 10MG/ML VIAL 5ML IV ONE (13:19)
[2020-12-31] MEDS ORDERED: DEXAMETHASONE 4MG/ML 1ML VIAL ONE (13:23)
[2020-12-31] MEDS ORDERED: CEFAZOLIN SODIUM 1000MG/VIAL ONE (13:45)
[2020-12-31] MEDS ORDERED: POTASSIUM CHLORIDE 40MEQ/20ML INJ IV ONE (13:56)
[2020-12-31] MEDS ORDERED: MAGNESIUM SULFATE 5GM/10ML VIAL IV ONE (13:57)
[2020-12-31] MEDS ORDERED: ALBUMIN HUMAN 25GM/100ML (25%) IV ONE (14:07)
[2020-12-31] MEDS ORDERED: CALCIUM CHLORIDE 1GM/10ML SYR IV ONE (14:08)
[2020-12-31] MEDS ORDERED: PROPOFOL 10MG/ML 100ML 100 ML IV ONE (14:18)
[2020-12-31] MEDS ORDERED: MORPHINE SULFATE 2 MG/ML CPJ (NOT FOR IM USE) IV PRN (14:45)
[2020-12-31] MEDS ORDERED: HYDROMORPHONE HCL/PF 2MG/ML (OR) ONE (14:54)
[2020-12-31] MEDS ORDERED: EPINEPHRINE 5 MG in SODIUM CHLORIDE 0.9% 245 ML IV PRN (15:00)
[2020-12-31] MEDS ORDERED: NALOXONE HCL 0.4MG/ML VIAL IV PRN (15:15)
[2020-12-31] MEDS: PROPOFOL 10MG/ML 100ML 100 ML IV PRN ×3 (16:06→21:33)
[2020-12-31] MEDS: DEXT 5%/LACTATED RINGERS 1,000 ML IV SCH ×2 (16:07→23:17)
[2020-12-31] MEDS: DEXAMETHASONE 4MG/ML 1ML VIAL IV SCH ×2 (17:44→23:17)
[2020-12-31 21:01] LABS: HEMATOCRIT. 22.6 % (42.0-52.0); HEMOGLOBIN. 7.1 g/dL (14.0-18.0); MEAN CORPUSCULAR HEMOGLOBIN 24.5 pg (28.0-32.0); MEAN CORPUSCULAR VOLUME 77.8 fL (80.0-94.0); MEAN PLATELET VOLUME 8.6 fl (7.4-10.4); PLATELET 250 x1000/uL (130-400); RED CELL DISTRIBUTION WIDTH 19.9 % (11.6-14.6)
[2020-12-31 21:08] LABS: CHLORIDE 104 mEq/L (98-107)
[2020-12-31 21:14] LABS: INR 1.3; PARTIAL THROMBOPLASTIN TIME 47.8 sec (23.4-31.0); PROTHROMBIN TIME 13.8 sec (9.6-11.0)
[2020-12-31 21:50] LABS: PLATELET ESTIMATE NORMAL
[2020-12-31] MEDS ORDERED: CEFAZOLIN SODIUM 1000MG/VIAL IV SCH (22:00)
[2020-12-31] MEDS: CEFAZOLIN 1000MG PREMIX 50 ML IV SCH (23:23)
[2021-01-01] VITALS (87 sets, daily range): BP systolic 76–147; BP diastolic 35–64
[2021-01-01] MEDS: PROPOFOL 10MG/ML 100ML 100 ML IV PRN ×3 (03:26→21:31)
[2021-01-01] MEDS: CEFAZOLIN 1000MG PREMIX 50 ML IV SCH ×3 (05:10→21:30)
[2021-01-01] MEDS: DEXAMETHASONE 4MG/ML 1ML VIAL IV SCH ×4 (05:10→23:08)
[2021-01-01 05:20] LABS: CHLORIDE 109 mEq/L (98-107)
[2021-01-01 05:23] LABS: MEAN CORPUSCULAR HEMOGLOBIN 25.3 pg (28.0-32.0); MEAN CORPUSCULAR VOLUME 74.5 fL (80.0-94.0); MEAN PLATELET VOLUME 8.1 fl (7.4-10.4); PLATELET 230 x1000/uL (130-400); RED BLOOD CELL COUNT 2.78 mill/uL (4.7-6.1); RED CELL DISTRIBUTION WIDTH 20.6 % (11.6-14.6)
[2021-01-01 05:42] LABS: HEMATOCRIT. 20.7 % (42.0-52.0)
[2021-01-01] MEDS: FERROUS SULFATE 325MG TABLET PO SCH ×3 (07:00→17:00)
[2021-01-01 07:42] LABS: BG BASE EXCESS -0.9 mmol/L (-2.0-2.0); BG CARBOXYHEMOGLOBIN 0.4 % (0.5-1.5); BG DEOXYHEMOGLOBIN 2.2 % (0.0-5.0); BG HCO3 ACT 22.7 mmol/L (22.0-26.0); BG METHEMOGLOBIN 0.1 % (0.0-1.5); BG OXYGEN SATURATION 97.8 % (92.0-98.5); BG OXYHEMOGLOBIN 97.3 % (94.0-97.0); BG PCO2 32.4 mmHg (35.0-45.0); BG PH 7.464 (7.350-7.450); BG PO2 116.4 mmHg (75.0-100.0); BG SAMPLE SITE ALINE; BG TOTAL HEMOGLOBIN 6.8 g/dL (12.0-18.0); BG VENT MODE VENT - AC
[2021-01-01 08:47] LABS: PLATELET ESTIMATE NORMAL
[2021-01-01] MEDS: POLYETHYLENE GLYCOL 3350 (17GM) 1 DOSE PACK PO SCH (09:00)
[2021-01-01] MEDS: DOCUSATE SODIUM 250MG CAPSULE PO SCH ×2 (09:00→17:00)
[2021-01-01] MEDS: NICARDIPINE 100 MG in SODIUM CHLORIDE 0.9% 60 ML IV PRN (10:54)
[2021-01-01] MEDS: DEXT 5%/LACTATED RINGERS 1,000 ML IV SCH ×2 (11:04→22:00)
[2021-01-01] MEDS: HYDROMORPHONE HCL/PF 2MG/ML CPJ IV PRN (13:00)
[2021-01-01 14:09] LABS: HEMATOCRIT 23.6 % (42.0-52.0); HEMOGLOBIN 7.9 g/dL (14.0-18.0)
[2021-01-01] MEDS ORDERED: NALOXONE HCL 0.4MG/ML VIAL IV PRN (14:45)
[2021-01-01 16:58] LABS: INR 1.1
[2021-01-02] VITALS (93 sets, daily range): BP systolic 99–206; BP diastolic 41–99
[2021-01-02] MEDS: DEXT 5%/LACTATED RINGERS 1,000 ML IV SCH ×3 (04:35→22:56)
[2021-01-02] MEDS: PROPOFOL 10MG/ML 100ML 100 ML IV PRN ×3 (04:36→20:16)
[2021-01-02] MEDS: DEXAMETHASONE 4MG/ML 1ML VIAL IV SCH ×3 (05:28→18:36)
[2021-01-02] MEDS: CEFAZOLIN 1000MG PREMIX 50 ML IV SCH ×3 (05:29→21:40)
[2021-01-02 05:57] LABS: CHLORIDE 112 mEq/L (98-107)
[2021-01-02 05:59] LABS: HEMOGLOBIN. 7.5 g/dL (14.0-18.0); MEAN CORPUSCULAR HEMOGLOBIN 25.1 pg (28.0-32.0); MEAN CORPUSCULAR VOLUME 76.5 fL (80.0-94.0); MEAN PLATELET VOLUME 8.4 fl (7.4-10.4); PLATELET 187 x1000/uL (130-400); RED CELL DISTRIBUTION WIDTH 20.4 % (11.6-14.6)
[2021-01-02] MEDS: FERROUS SULFATE 325MG TABLET PO SCH ×3 (07:00→17:00)
[2021-01-02 08:22] LABS: BG BASE EXCESS 1.2 mmol/L (-2.0-2.0); BG CARBOXYHEMOGLOBIN 0.3 % (0.5-1.5); BG DEOXYHEMOGLOBIN 1.8 % (0.0-5.0); BG FRACTION INSPIRED OXYGEN 40; BG HCO3 ACT 25.3 mmol/L (22.0-26.0); BG METHEMOGLOBIN 0.2 % (0.0-1.5); BG OXYGEN SATURATION 98.2 % (92.0-98.5); BG OXYHEMOGLOBIN 97.7 % (94.0-97.0); BG PCO2 37.6 mmHg (35.0-45.0); BG PH 7.445 (7.350-7.450); BG PO2 118.3 mmHg (75.0-100.0); BG TOTAL HEMOGLOBIN 7.8 g/dL (12.0-18.0); BG VENT MODE VENT - SIMV
[2021-01-02] MEDS: DOCUSATE SODIUM 250MG CAPSULE PO SCH ×2 (09:00→17:00)
[2021-01-02] MEDS: POLYETHYLENE GLYCOL 3350 (17GM) 1 DOSE PACK PO SCH (09:00)
[2021-01-02 14:38] LABS: PLATELET ESTIMATE NORMAL
[2021-01-03] VITALS (111 sets, daily range): BP systolic 91–279; BP diastolic 40–191
[2021-01-03] MEDS: PROPOFOL 10MG/ML 100ML 100 ML IV PRN ×5 (00:16→20:12)
[2021-01-03] MEDS: NICARDIPINE 100 MG in SODIUM CHLORIDE 0.9% 60 ML IV PRN ×3 (00:22→21:38)
[2021-01-03] MEDS: FERROUS SULFATE 325MG TABLET PO SCH ×3 (06:11→17:00)
[2021-01-03 06:19] LABS: HEMATOCRIT. 21.7 % (42.0-52.0); HEMOGLOBIN. 7.2 g/dL (14.0-18.0); MEAN CORPUSCULAR HEMOGLOBIN 25.6 pg (28.0-32.0); MEAN CORPUSCULAR VOLUME 77.1 fL (80.0-94.0); MEAN PLATELET VOLUME 8.1 fl (7.4-10.4); PLATELET 157 x1000/uL (130-400); RED BLOOD CELL COUNT 2.81 mill/uL (4.7-6.1)
[2021-01-03] MEDS: DEXT 5%/LACTATED RINGERS 1,000 ML IV SCH (06:26)
[2021-01-03 07:05] LABS: CHLORIDE 113 mEq/L (98-107)
[2021-01-03] MEDS: POLYETHYLENE GLYCOL 3350 (17GM) 1 DOSE PACK PO SCH (09:00)
[2021-01-03] MEDS: DOCUSATE SODIUM 250MG CAPSULE PO SCH ×2 (09:00→17:00)
[2021-01-03] MEDS ORDERED: BISACODYL 10MG SUPP PR PRN (11:45)
[2021-01-03 13:40] LABS: PLATELET ESTIMATE NORMAL
[2021-01-03] MEDS: SODIUM CHLORIDE 0.45% 1,000 ML IV SCH ×2 (15:10→21:17)
[2021-01-03 20:20] LABS: BG BASE EXCESS 3.4 mmol/L (-2.0-2.0); BG CARBOXYHEMOGLOBIN 0.1 % (0.5-1.5); BG DEOXYHEMOGLOBIN 6.4 % (0.0-5.0); BG FRACTION INSPIRED OXYGEN 35; BG HCO3 ACT 27.6 mmol/L (22.0-26.0); BG METHEMOGLOBIN 0.3 % (0.0-1.5); BG OXYGEN SATURATION 93.6 % (92.0-98.5); BG OXYHEMOGLOBIN 93.2 % (94.0-97.0); BG PCO2 40.1 mmHg (35.0-45.0); BG PH 7.455 (7.350-7.450); BG PO2 68.2 mmHg (75.0-100.0); BG SAMPLE SITE LEFT RADIAL; BG TOTAL HEMOGLOBIN 10.6 g/dL (12.0-18.0); BG VENT MODE VENT - SIMV
[2021-01-03 23:51] LABS: HEMATOCRIT 27.2 % (42.0-52.0); HEMOGLOBIN 9.1 g/dL (14.0-18.0)
[2021-01-03 23:57] LABS: INR 1.1; PROTHROMBIN TIME 12.1 sec (9.6-11.0)
[2021-01-04] VITALS (100 sets, daily range): BP systolic 94–152; BP diastolic 39–80
[2021-01-04] MEDS: PROPOFOL 10MG/ML 100ML 100 ML IV PRN ×2 (00:12→05:46)
[2021-01-04 05:38] LABS: HEMATOCRIT. 28.4 % (42.0-52.0); HEMOGLOBIN. 9.4 g/dL (14.0-18.0); MEAN CORPUSCULAR HEMOGLOBIN 26.6 pg (28.0-32.0); MEAN CORPUSCULAR VOLUME 80.3 fL (80.0-94.0); MEAN PLATELET VOLUME 8.8 fl (7.4-10.4); PLATELET 160 x1000/uL (130-400); RED BLOOD CELL COUNT 3.54 mill/uL (4.7-6.1); RED CELL DISTRIBUTION WIDTH 20.7 % (11.6-14.6)
[2021-01-04] MEDS: SODIUM CHLORIDE 0.45% 1,000 ML IV SCH ×3 (05:46→22:58)
[2021-01-04 06:50] LABS: CHLORIDE 112 mEq/L (98-107)
[2021-01-04] MEDS: FERROUS SULFATE 325MG TABLET PO SCH ×3 (07:00→16:46)
[2021-01-04] MEDS: PANTOPRAZOLE SODIUM 40 MG/VIAL IV SCH (08:45)
[2021-01-04] MEDS: DOCUSATE SODIUM 250MG CAPSULE PO SCH ×2 (08:46→16:46)
[2021-01-04] MEDS: POLYETHYLENE GLYCOL 3350 (17GM) 1 DOSE PACK PO SCH (08:46)
[2021-01-04] MEDS: NICARDIPINE 100 MG in SODIUM CHLORIDE 0.9% 60 ML IV PRN ×2 (08:47→15:35)
[2021-01-04 09:33] LABS: BG BASE EXCESS 1.2 mmol/L (-2.0-2.0); BG CARBOXYHEMOGLOBIN 0.3 % (0.5-1.5); BG DEOXYHEMOGLOBIN 5.8 % (0.0-5.0); BG FRACTION INSPIRED OXYGEN 35; BG HCO3 ACT 25.8 mmol/L (22.0-26.0); BG METHEMOGLOBIN 0.2 % (0.0-1.5); BG OXYGEN SATURATION 94.2 % (92.0-98.5); BG OXYHEMOGLOBIN 93.7 % (94.0-97.0); BG PCO2 40.7 mmHg (35.0-45.0); BG PO2 72.5 mmHg (75.0-100.0); BG SAMPLE SITE LEFT RADIAL; BG TOTAL HEMOGLOBIN 9.7 g/dL (12.0-18.0); BG VENT MODE VENT - AC
[2021-01-04 10:50] LABS: PLATELET ESTIMATE NORMAL
[2021-01-04] MEDS ORDERED: PROPOFOL 10MG/ML 100ML 100 ML IV PRN (12:15)
[2021-01-04] MEDS ORDERED: HYDRALAZINE 20MG/ML VIAL IV PRN (14:30)
[2021-01-04] MEDS: HYDROMORPHONE HCL/PF 2MG/ML CPJ IV PRN (23:26)
[2021-01-05] VITALS (75 sets, daily range): BP systolic 97–142; BP diastolic 41–72
[2021-01-05] MEDS: HYDROMORPHONE HCL/PF 2MG/ML CPJ IV PRN ×2 (02:59→20:49)
[2021-01-05 05:57] LABS: HEMOGLOBIN. 9.4 g/dL (14.0-18.0); MEAN CORPUSCULAR HEMOGLOBIN 26.2 pg (28.0-32.0); MEAN CORPUSCULAR VOLUME 80.8 fL (80.0-94.0); MEAN PLATELET VOLUME 8.5 fl (7.4-10.4); PLATELET 147 x1000/uL (130-400); RED BLOOD CELL COUNT 3.59 mill/uL (4.7-6.1); RED CELL DISTRIBUTION WIDTH 21.2 % (11.6-14.6)
[2021-01-05 06:08] LABS: CHLORIDE 112 mEq/L (98-107)
[2021-01-05] MEDS: FERROUS SULFATE 325MG TABLET PO SCH ×3 (06:51→18:10)
[2021-01-05] MEDS: POLYETHYLENE GLYCOL 3350 (17GM) 1 DOSE PACK PO SCH (09:00)
[2021-01-05] MEDS: DOCUSATE SODIUM 250MG CAPSULE PO SCH (09:00)
[2021-01-05] MEDS: IPRATROPIUM/ALBUTEROL 0.5-3(2.5)MG/3ML NEB HHN PRN ×2 (09:03→12:30)
[2021-01-05] MEDS: PANTOPRAZOLE SODIUM 40 MG/VIAL IV SCH (09:14)
[2021-01-05] MEDS: SODIUM CHLORIDE 0.45% 1,000 ML IV SCH (09:15)
[2021-01-05 09:55] LABS: BG BASE EXCESS -0.8 mmol/L (-2.0-2.0); BG CARBOXYHEMOGLOBIN 0.2 % (0.5-1.5); BG DEOXYHEMOGLOBIN 10.2 % (0.0-5.0); BG HCO3 ACT 23.9 mmol/L (22.0-26.0); BG METHEMOGLOBIN 0.3 % (0.0-1.5); BG OXYGEN SATURATION 89.7 % (92.0-98.5); BG OXYHEMOGLOBIN 89.3 % (94.0-97.0); BG PCO2 39.9 mmHg (35.0-45.0); BG PH 7.396 (7.350-7.450); BG PO2 59.7 mmHg (75.0-100.0); BG SAMPLE SITE RIGHT RADIAL; BG TOTAL HEMOGLOBIN 10.1 g/dL (12.0-18.0); BG VENT MODE VENT - AC
[2021-01-05] MEDS ORDERED: FUROSEMIDE 40MG/4ML VIAL IVP NR (10:00)
[2021-01-05 10:58] LABS: PLATELET ESTIMATE NORMAL
[2021-01-05] MEDS: ACETAMINOPHEN 325MG TABLET PO PRN (20:07)
[2021-01-05] MEDS: DOCUSATE SODIUM SUGAR FREE 100MG/10ML UDC NG SCH (21:00)
[2021-01-06] VITALS (48 sets, daily range): BP systolic 102–152; BP diastolic 40–92
[2021-01-06] MEDS: HYDROMORPHONE HCL/PF 2MG/ML CPJ IV PRN ×4 (01:11→17:53)
[2021-01-06 05:25] LABS: HEMATOCRIT. 28.2 % (42.0-52.0); HEMOGLOBIN. 9.2 g/dL (14.0-18.0); MEAN CORPUSCULAR HEMOGLOBIN 26.5 pg (28.0-32.0); MEAN CORPUSCULAR VOLUME 81.2 fL (80.0-94.0); MEAN PLATELET VOLUME 8.7 fl (7.4-10.4); PLATELET 134 x1000/uL (130-400); RED BLOOD CELL COUNT 3.47 mill/uL (4.7-6.1); RED CELL DISTRIBUTION WIDTH 21.4 % (11.6-14.6)
[2021-01-06 05:38] LABS: CHLORIDE 112 mEq/L (98-107)
[2021-01-06] MEDS: FERROUS SULFATE 325MG TABLET PO SCH ×3 (06:26→17:00)
[2021-01-06] MEDS: DOCUSATE SODIUM SUGAR FREE 100MG/10ML UDC NG SCH ×3 (06:30→22:18)
[2021-01-06] MEDS: PANTOPRAZOLE SODIUM 40 MG/VIAL IV SCH (08:51)
[2021-01-06] MEDS: POLYETHYLENE GLYCOL 3350 (17GM) 1 DOSE PACK PO SCH (08:51)
[2021-01-06 14:48] LABS: BG BASE EXCESS 2.9 mmol/L (-2.0-2.0); BG CARBOXYHEMOGLOBIN 0.3 % (0.5-1.5); BG DEOXYHEMOGLOBIN 2.1 % (0.0-5.0); BG FRACTION INSPIRED OXYGEN 80; BG HCO3 ACT 27.7 mmol/L (22.0-26.0); BG OXYGEN SATURATION 97.9 % (92.0-98.5); BG OXYHEMOGLOBIN 97.6 % (94.0-97.0); BG PCO2 43.7 mmHg (35.0-45.0); BG SAMPLE SITE RIGHT RADIAL; BG TOTAL HEMOGLOBIN 9.4 g/dL (12.0-18.0); BG TOTAL RESPIRATORY RATE 21 b/min; BG VENT MODE VENT - AC
[2021-01-06] MEDS: PIPERACILLIN/TAZOBACTAM 3.375 G in DEXTROSE 5% WATER 50 ML IV SCH ×2 (15:01→22:18)
[2021-01-06 16:12] LABS: NUCLEATED RED BLOOD CELLS 1 /100 WBC; PLATELET ESTIMATE NORMAL
[2021-01-06] MEDS ORDERED: DILTIAZEM HCL 125 MG in DEXT 5% WATER 100 ML IV PRN (22:00)
[2021-01-06] MEDS ORDERED: DILTIAZEM HCL 5MG/ML 5ML VIAL IV SCH (22:00)
[2021-01-06] MEDS: ACETAMINOPHEN 325MG TABLET PO PRN (23:48)
[2021-01-07] VITALS (65 sets, daily range): BP systolic 94–147; BP diastolic 41–75
[2021-01-07 05:38] LABS: HEMATOCRIT. 27.3 % (42.0-52.0); HEMOGLOBIN. 8.9 g/dL (14.0-18.0); MEAN CORPUSCULAR HEMOGLOBIN 26.7 pg (28.0-32.0); MEAN CORPUSCULAR VOLUME 81.8 fL (80.0-94.0); MEAN PLATELET VOLUME 8.9 fl (7.4-10.4); PLATELET 142 x1000/uL (130-400); RED BLOOD CELL COUNT 3.34 mill/uL (4.7-6.1); RED CELL DISTRIBUTION WIDTH 21.4 % (11.6-14.6)
[2021-01-07] MEDS: FERROUS SULFATE 325MG TABLET PO SCH ×3 (06:11→16:33)
[2021-01-07] MEDS: PIPERACILLIN/TAZOBACTAM 3.375 G in DEXTROSE 5% WATER 50 ML IV SCH ×3 (06:11→22:26)
[2021-01-07] MEDS: DOCUSATE SODIUM SUGAR FREE 100MG/10ML UDC NG SCH ×3 (06:12→22:24)
[2021-01-07] MEDS ORDERED: VANCOMYCIN 2,000 MG in DEXT 5% WATER 500 ML IV SCH (08:00)
[2021-01-07 08:28] LABS: BG BASE EXCESS 0.1 mmol/L (-2.0-2.0); BG CARBOXYHEMOGLOBIN 0.3 % (0.5-1.5); BG HCO3 ACT 24.9 mmol/L (22.0-26.0); BG METHEMOGLOBIN 0.3 % (0.0-1.5); BG OXYHEMOGLOBIN 96.4 % (94.0-97.0); BG PCO2 41.1 mmHg (35.0-45.0); BG PO2 97.2 mmHg (75.0-100.0); BG SAMPLE SITE RIGHT RADIAL; BG TOTAL HEMOGLOBIN 8.4 g/dL (12.0-18.0); BG VENT MODE VENT - AC
[2021-01-07] MEDS: PANTOPRAZOLE SODIUM 40 MG/VIAL IV SCH (08:49)
[2021-01-07] MEDS: POLYETHYLENE GLYCOL 3350 (17GM) 1 DOSE PACK PO SCH (08:49)
[2021-01-07] MEDS: SODIUM CHLORIDE 0.45% 1,000 ML IV SCH (08:51)
[2021-01-07] MEDS: HYDROMORPHONE HCL/PF 2MG/ML CPJ IV PRN ×2 (09:00→18:52)
[2021-01-07 09:14] LABS: PLATELET ESTIMATE NORMAL
[2021-01-07] MEDS: LACTULOSE 20G/30ML UDC PO SCH ×2 (16:33→22:23)
[2021-01-07 18:17] LABS: INR 1.3; PROTHROMBIN TIME 13.9 sec (9.6-11.0)
[2021-01-07] MEDS: METOCLOPRAMIDE HCL 10MG/2ML VIAL IV SCH (18:52)
[2021-01-07] MEDS: DILTIAZEM HCL 30MG TABLET PO SCH (22:24)
[2021-01-08] VITALS (26 sets, daily range): BP systolic 101–163; BP diastolic 45–75
[2021-01-08] MEDS: METOCLOPRAMIDE HCL 10MG/2ML VIAL IV SCH ×4 (01:28→17:32)
[2021-01-08] MEDS: VANCOMYCIN 1250MG in DEXTROSE 5% WATER 250ML IV SCH ×2 (01:28→17:30)
[2021-01-08] MEDS: SODIUM CHLORIDE 0.45% 1,000 ML IV SCH ×2 (01:29→17:30)
[2021-01-08] MEDS: HYDROMORPHONE HCL/PF 2MG/ML CPJ IV PRN ×3 (02:32→13:51)
[2021-01-08] MEDS: DOCUSATE SODIUM SUGAR FREE 100MG/10ML UDC NG SCH ×3 (06:00→21:23)
[2021-01-08] MEDS: LACTULOSE 20G/30ML UDC PO SCH ×3 (06:00→21:23)
[2021-01-08] MEDS: DILTIAZEM HCL 30MG TABLET PO SCH ×3 (06:00→22:11)
[2021-01-08 06:26] LABS: HEMATOCRIT. 22.4 % (42.0-52.0); HEMOGLOBIN. 7.6 g/dL (14.0-18.0); MEAN CORPUSCULAR VOLUME 79.5 fL (80.0-94.0); MEAN PLATELET VOLUME 8.5 fl (7.4-10.4); PLATELET 134 x1000/uL (130-400); RED BLOOD CELL COUNT 2.82 mill/uL (4.7-6.1); RED CELL DISTRIBUTION WIDTH 21.8 % (11.6-14.6)
[2021-01-08 06:29] LABS: INR 1.3
[2021-01-08 06:32] LABS: CHLORIDE 114 mEq/L (98-107)
[2021-01-08] MEDS: FERROUS SULFATE 325MG TABLET PO SCH ×3 (06:45→17:30)
[2021-01-08] MEDS: PIPERACILLIN/TAZOBACTAM 3.375 G in DEXTROSE 5% WATER 50 ML IV SCH ×3 (06:52→22:11)
[2021-01-08 07:29] LABS: PLATELET ESTIMATE NORMAL
[2021-01-08] MEDS ORDERED: LIDOCAINE HCL/EPINEPHRINE 1%-EPI 1:100,000 20 ML VIAL ONE ×2 (08:37→10:40)
[2021-01-08] MEDS: POLYETHYLENE GLYCOL 3350 (17GM) 1 DOSE PACK PO SCH (08:45)
[2021-01-08] MEDS: PANTOPRAZOLE SODIUM 40 MG/VIAL IV SCH (08:45)
[2021-01-08 15:52] LABS: HEMATOCRIT 24.1 % (42.0-52.0); HEMOGLOBIN 7.7 g/dL (14.0-18.0)
[2021-01-08] MEDS: ACETAMINOPHEN 325MG TABLET PO PRN (17:32)
[2021-01-08 19:04] LABS: CLARITY URINE CLEAR (CLEAR); COLOR URINE YELLOW (YELLOW); KETONES URINE NEGATIVE (NEGATIVE); LEUKOCYTE ESTERASE URINE NEGATIVE (NEGATIVE); NITRITE URINE NEGATIVE (NEGATIVE); OCCULT BLOOD URINE TRACE (NEGATIVE); PH URINE 5.5 (4.5-8.0); PROTEIN URINE TRACE (NEGATIVE); SPECIFIC GRAVITY URINE 1.018 (1.005-1.030)
[2021-01-09] VITALS (35 sets, daily range): BP systolic 90–147; BP diastolic 41–79
[2021-01-09] MEDS: METOCLOPRAMIDE HCL 10MG/2ML VIAL IV SCH ×3 (01:20→18:18)
[2021-01-09 05:54] LABS: HEMATOCRIT. 23.1 % (42.0-52.0); HEMOGLOBIN. 7.5 g/dL (14.0-18.0); MEAN CORPUSCULAR HEMOGLOBIN 26.3 pg (28.0-32.0); MEAN CORPUSCULAR VOLUME 80.9 fL (80.0-94.0); MEAN PLATELET VOLUME 8.8 fl (7.4-10.4); PLATELET 146 x1000/uL (130-400); RED BLOOD CELL COUNT 2.86 mill/uL (4.7-6.1)
[2021-01-09] MEDS: LACTULOSE 20G/30ML UDC PO SCH (06:00)
[2021-01-09] MEDS: DOCUSATE SODIUM SUGAR FREE 100MG/10ML UDC NG SCH ×3 (06:00→22:01)
[2021-01-09] MEDS: PIPERACILLIN/TAZOBACTAM 3.375 G in DEXTROSE 5% WATER 50 ML IV SCH ×3 (06:04→22:00)
[2021-01-09 06:18] LABS: CHLORIDE 117 mEq/L (98-107)
[2021-01-09] MEDS: DILTIAZEM HCL 30MG TABLET PO SCH ×3 (06:28→22:01)
[2021-01-09] MEDS: FERROUS SULFATE 325MG TABLET PO SCH ×3 (06:29→18:18)
[2021-01-09 06:34] LABS: PHOSPHORUS 2.1 mg/dL (2.5-4.9)
[2021-01-09 08:32] LABS: BG BASE EXCESS 5.2 mmol/L (-2.0-2.0); BG CARBOXYHEMOGLOBIN 0.5 % (0.5-1.5); BG DEOXYHEMOGLOBIN 2.9 % (0.0-5.0); BG HCO3 ACT 28.7 mmol/L (22.0-26.0); BG METHEMOGLOBIN 0.3 % (0.0-1.5); BG OXYGEN SATURATION 97.1 % (92.0-98.5); BG OXYHEMOGLOBIN 96.3 % (94.0-97.0); BG PCO2 36.9 mmHg (35.0-45.0); BG PH 7.508 (7.350-7.450); BG PO2 90.3 mmHg (75.0-100.0); BG SAMPLE SITE RIGHT RADIAL; BG TOTAL HEMOGLOBIN 7.8 g/dL (12.0-18.0); BG VENT MODE VENT - AC
[2021-01-09 08:51] LABS: PLATELET ESTIMATE NORMAL
[2021-01-09] MEDS: POLYETHYLENE GLYCOL 3350 (17GM) 1 DOSE PACK PO SCH (08:56)
[2021-01-09] MEDS: PANTOPRAZOLE SODIUM 40 MG/VIAL IV SCH (08:56)
[2021-01-09] MEDS: VANCOMYCIN 1 G PREMIX 200 ML IV SCH (12:36)
[2021-01-09 15:27] LABS: HEMATOCRIT 24.3 % (42.0-52.0); HEMOGLOBIN 7.8 g/dL (14.0-18.0)
[2021-01-10] VITALS (47 sets, daily range): BP systolic 95–220; BP diastolic 48–134
[2021-01-10] MEDS: ACETAMINOPHEN 325MG TABLET PO PRN (01:36)
[2021-01-10] MEDS: METOCLOPRAMIDE HCL 10MG/2ML VIAL IV SCH ×5 (01:36→23:01)
[2021-01-10 05:20] LABS: BASOPHILS % 0.2 % (0.0-2.0); CHLORIDE 119 mEq/L (98-107); HEMATOCRIT. 22.9 % (42.0-52.0); HEMOGLOBIN. 7.6 g/dL (14.0-18.0); LYMPHOCYTES % 10.2 % (20.0-50.0); MEAN CORPUSCULAR HEMOGLOBIN 26.5 pg (28.0-32.0); MEAN CORPUSCULAR VOLUME 80.2 fL (80.0-94.0); MEAN PLATELET VOLUME 8.6 fl (7.4-10.4); MONOCYTES % 6.7 % (2.0-8.0); NEUTROPHILS % 82.9 % (40.0-76.0); PLATELET 178 x1000/uL (130-400); RED BLOOD CELL COUNT 2.85 mill/uL (4.7-6.1); RED CELL DISTRIBUTION WIDTH 22.4 % (11.6-14.6)
[2021-01-10 05:32] LABS: INR 1.4; PROTHROMBIN TIME 14.9 sec (9.6-11.0)
[2021-01-10] MEDS: DILTIAZEM HCL 30MG TABLET PO SCH ×3 (06:38→21:12)
[2021-01-10] MEDS: PIPERACILLIN/TAZOBACTAM 3.375 G in DEXTROSE 5% WATER 50 ML IV SCH ×3 (06:39→21:11)
[2021-01-10] MEDS: DOCUSATE SODIUM SUGAR FREE 100MG/10ML UDC NG SCH ×3 (06:48→21:12)
[2021-01-10] MEDS: VANCOMYCIN 1 G PREMIX 200 ML IV SCH ×2 (06:48→23:02)
[2021-01-10] MEDS: FERROUS SULFATE 325MG TABLET PO SCH ×3 (06:49→17:10)
[2021-01-10] MEDS: POLYETHYLENE GLYCOL 3350 (17GM) 1 DOSE PACK PO SCH (08:37)
[2021-01-10] MEDS: PANTOPRAZOLE SODIUM 40 MG/VIAL IV SCH (08:43)
[2021-01-10] MEDS: DEXTROSE 5% WATER 1,000 ML IV SCH ×2 (12:16→21:25)
[2021-01-10] MEDS ORDERED: MIDAZOLAM HCL 5 MG/5 ML VIAL ONE (15:00)
[2021-01-10] MEDS ORDERED: FENTANYL CITRATE/PF 50MCG/ML 2ML VIAL ONE (15:00)
[2021-01-10] MEDS ORDERED: FENTANYL CITRATE/PF 50MCG/ML 2ML VIAL IV PRN (15:13)
[2021-01-10] MEDS ORDERED: MIDAZOLAM HCL 5 MG/5 ML VIAL IV PRN (15:15)
[2021-01-10] MEDS ORDERED: DOPAMINE 400MG/250ML PREMIX 250 ML IV PRN (16:45)
[2021-01-11] VITALS (40 sets, daily range): BP systolic 105–152; BP diastolic 51–102
[2021-01-11] MEDS: PIPERACILLIN/TAZOBACTAM 3.375 G in DEXTROSE 5% WATER 50 ML IV SCH ×3 (05:12→22:25)
[2021-01-11] MEDS: DILTIAZEM HCL 30MG TABLET PO SCH ×3 (05:13→20:33)
[2021-01-11] MEDS: DOCUSATE SODIUM SUGAR FREE 100MG/10ML UDC NG SCH ×3 (05:13→20:33)
[2021-01-11] MEDS: METOCLOPRAMIDE HCL 10MG/2ML VIAL IV SCH ×4 (05:13→23:06)
[2021-01-11 05:20] LABS: BASOPHILS % 0.1 % (0.0-2.0); HEMOGLOBIN. 7.2 g/dL (14.0-18.0); LYMPHOCYTES % 8.3 % (20.0-50.0); MEAN CORPUSCULAR HEMOGLOBIN 26.4 pg (28.0-32.0); MEAN CORPUSCULAR VOLUME 81.1 fL (80.0-94.0); MEAN PLATELET VOLUME 9.3 fl (7.4-10.4); MONOCYTES % 4.3 % (2.0-8.0); NEUTROPHILS % 87.3 % (40.0-76.0); PLATELET 168 x1000/uL (130-400); RED BLOOD CELL COUNT 2.71 mill/uL (4.7-6.1); RED CELL DISTRIBUTION WIDTH 22.1 % (11.6-14.6)
[2021-01-11 05:32] LABS: CHLORIDE 118 mEq/L (98-107)
[2021-01-11 05:39] LABS: PHOSPHORUS 2.5 mg/dL (2.5-4.9)
[2021-01-11] MEDS ORDERED: POTASSIUM CHLORIDE 20MEQ/PACKET PO SCH (06:15)
[2021-01-11] MEDS: FERROUS SULFATE 325MG TABLET PO SCH ×3 (06:18→16:45)
[2021-01-11] MEDS: IPRATROPIUM/ALBUTEROL 0.5-3(2.5)MG/3ML NEB HHN PRN (08:33)
[2021-01-11] MEDS: PANTOPRAZOLE SODIUM 40 MG/VIAL IV SCH (08:50)
[2021-01-11] MEDS: POLYETHYLENE GLYCOL 3350 (17GM) 1 DOSE PACK PO SCH (08:50)
[2021-01-11] MEDS ORDERED: MORPHINE SULFATE 2 MG/ML CPJ (NOT FOR IM USE) IV PRN (12:15)
[2021-01-11 14:11] LABS: A/G RATIO 0.5 (0.7-1.7); ALBUMIN 1.7 g/dL (2.9-4.4); ALPHA-1-GLOBULIN 0.4 g/dL (0.0-0.4); ALPHA-2-GLOBULIN 1.2 g/dL (0.4-1.0); BETA GLOBULIN 0.9 g/dL (0.7-1.3); GAMMA GLOBULINS 0.7 g/dL (0.4-1.8); GLOBULIN TOTAL 3.3 g/dL (2.2-3.9); M-SPIKE 0.2 g/dL (Not Observed)
[2021-01-11] MEDS: IPRATROPIUM/ALBUTEROL 0.5-3(2.5)MG/3ML NEB HHN SCH ×2 (16:22→20:04)
[2021-01-11] MEDS: ACETYLCYSTEINE 100MG/ML 10% VIAL 4ML INH SCH (16:22)
[2021-01-11] MEDS ORDERED: SORBITOL 70% SOLN 30ML PEG NR (16:30)
[2021-01-11] MEDS: VANCOMYCIN 1 G PREMIX 200 ML IV SCH (17:51)
[2021-01-12] VITALS (13 sets, daily range): BP systolic 97–134; BP diastolic 53–77
[2021-01-12] MEDS: IPRATROPIUM/ALBUTEROL 0.5-3(2.5)MG/3ML NEB HHN SCH ×6 (00:06→20:03)
[2021-01-12] MEDS: PIPERACILLIN/TAZOBACTAM 3.375 G in DEXTROSE 5% WATER 50 ML IV SCH ×3 (05:00→21:34)
[2021-01-12] MEDS: DILTIAZEM HCL 30MG TABLET PO SCH ×3 (05:01→21:41)
[2021-01-12] MEDS: METOCLOPRAMIDE HCL 10MG/2ML VIAL IV SCH ×4 (05:01→23:31)
[2021-01-12] MEDS: DOCUSATE SODIUM SUGAR FREE 100MG/10ML UDC NG SCH ×3 (05:01→21:34)
[2021-01-12 05:35] LABS: CHLORIDE 118 mEq/L (98-107)
[2021-01-12 05:41] LABS: PHOSPHORUS 2.9 mg/dL (2.5-4.9)
[2021-01-12 05:44] LABS: BASOPHILS % 0.3 % (0.0-2.0); EOSINOPHILS % 0.1 % (0.0-5.0); HEMATOCRIT. 22.9 % (42.0-52.0); HEMOGLOBIN. 7.4 g/dL (14.0-18.0); LYMPHOCYTES % 9.1 % (20.0-50.0); MEAN CORPUSCULAR HEMOGLOBIN 26.2 pg (28.0-32.0); MEAN CORPUSCULAR VOLUME 81.5 fL (80.0-94.0); MEAN PLATELET VOLUME 9.3 fl (7.4-10.4); MONOCYTES % 3.4 % (2.0-8.0); NEUTROPHILS % 87.1 % (40.0-76.0); PLATELET 189 x1000/uL (130-400); RED BLOOD CELL COUNT 2.81 mill/uL (4.7-6.1)
[2021-01-12] MEDS: ACETYLCYSTEINE 100MG/ML 10% VIAL 4ML INH SCH ×2 (08:13→15:16)
[2021-01-12] MEDS ORDERED: POTASSIUM CHLORIDE 20MEQ/PACKET PO NR (08:15)
[2021-01-12] MEDS: PANTOPRAZOLE SODIUM 40 MG/VIAL IV SCH (08:54)
[2021-01-12] MEDS: FERROUS SULFATE 325MG TABLET PO SCH ×3 (08:55→17:21)
[2021-01-12] MEDS: POLYETHYLENE GLYCOL 3350 (17GM) 1 DOSE PACK PO SCH (08:55)
[2021-01-12] MEDS: ACETAMINOPHEN 325MG TABLET PO PRN (12:57)
[2021-01-12] MEDS: VANCOMYCIN 1 G PREMIX 200 ML IV SCH (13:55)
[2021-01-12] MEDS: AZITHROMYCIN 500 MG in DEXT 5% WATER 250 ML IV SCH (19:25)
[2021-01-13] VITALS (18 sets, daily range): BP systolic 102–143; BP diastolic 48–85
[2021-01-13] MEDS: IPRATROPIUM/ALBUTEROL 0.5-3(2.5)MG/3ML NEB HHN SCH ×6 (00:07→21:02)
[2021-01-13] MEDS: METOCLOPRAMIDE HCL 10MG/2ML VIAL IV SCH ×4 (06:00→23:12)
[2021-01-13] MEDS: DOCUSATE SODIUM SUGAR FREE 100MG/10ML UDC NG SCH ×3 (06:00→22:28)
[2021-01-13] MEDS: DILTIAZEM HCL 30MG TABLET PO SCH ×3 (06:05→22:29)
[2021-01-13] MEDS: PIPERACILLIN/TAZOBACTAM 3.375 G in DEXTROSE 5% WATER 50 ML IV SCH ×3 (06:08→22:25)
[2021-01-13 09:06] LABS: BASOPHILS % 0.6 % (0.0-2.0); EOSINOPHILS % 0.3 % (0.0-5.0); HEMATOCRIT. 24.7 % (42.0-52.0); HEMOGLOBIN. 7.8 g/dL (14.0-18.0); LYMPHOCYTES % 7.7 % (20.0-50.0); MEAN CORPUSCULAR HEMOGLOBIN 25.8 pg (28.0-32.0); MEAN CORPUSCULAR VOLUME 81.1 fL (80.0-94.0); MEAN PLATELET VOLUME 9.5 fl (7.4-10.4); MONOCYTES % 2.7 % (2.0-8.0); NEUTROPHILS % 88.7 % (40.0-76.0); PLATELET 225 x1000/uL (130-400); RED BLOOD CELL COUNT 3.04 mill/uL (4.7-6.1); RED CELL DISTRIBUTION WIDTH 21.2 % (11.6-14.6)
[2021-01-13 09:17] LABS: CHLORIDE 120 mEq/L (98-107)
[2021-01-13 09:21] LABS: INR 1.5; PROTHROMBIN TIME 15.3 sec (9.6-11.0)
[2021-01-13 09:22] LABS: PHOSPHORUS 2.9 mg/dL (2.5-4.9)
[2021-01-13] MEDS: POLYETHYLENE GLYCOL 3350 (17GM) 1 DOSE PACK PO SCH ×2 (10:23→10:27)
[2021-01-13] MEDS: PANTOPRAZOLE SODIUM 40 MG/VIAL IV SCH ×2 (10:23→10:27)
[2021-01-13] MEDS: FERROUS SULFATE 325MG TABLET PO SCH ×3 (10:24→18:22)
[2021-01-13 10:31] LABS: BG CARBOXYHEMOGLOBIN 0.4 % (0.5-1.5); BG DEOXYHEMOGLOBIN 5.8 % (0.0-5.0); BG FRACTION INSPIRED OXYGEN 30; BG HCO3 ACT 27.3 mmol/L (22.0-26.0); BG METHEMOGLOBIN 0.4 % (0.0-1.5); BG OXYGEN SATURATION 94.2 % (92.0-98.5); BG OXYHEMOGLOBIN 93.4 % (94.0-97.0); BG PCO2 35.4 mmHg (35.0-45.0); BG PH 7.505 (7.350-7.450); BG PO2 70.1 mmHg (75.0-100.0); BG SAMPLE SITE RIGHT RADIAL; BG TOTAL HEMOGLOBIN 7.8 g/dL (12.0-18.0); BG TOTAL RESPIRATORY RATE 18 b/min; BG VENT MODE VENT - AC
[2021-01-13] MEDS: ACETAMINOPHEN 325MG TABLET PO PRN (13:13)
[2021-01-13] MEDS: DEXTROSE 5% WATER 1,000 ML IV SCH (15:44)
[2021-01-13] MEDS: AZITHROMYCIN 500 MG in DEXT 5% WATER 250 ML IV SCH (18:22)
[2021-01-14] VITALS (17 sets, daily range): BP systolic 119–176; BP diastolic 49–81
[2021-01-14] MEDS: ACETYLCYSTEINE 100MG/ML 10% VIAL 4ML INH SCH ×3 (00:13→17:05)
[2021-01-14] MEDS: IPRATROPIUM/ALBUTEROL 0.5-3(2.5)MG/3ML NEB HHN SCH ×6 (00:13→20:49)
[2021-01-14] MEDS: ACETAMINOPHEN 325MG TABLET PO PRN (01:38)
[2021-01-14] MEDS: METOCLOPRAMIDE HCL 10MG/2ML VIAL IV SCH ×4 (05:32→23:20)
[2021-01-14] MEDS: DOCUSATE SODIUM SUGAR FREE 100MG/10ML UDC NG SCH ×3 (05:33→21:57)
[2021-01-14] MEDS: DILTIAZEM HCL 30MG TABLET PO SCH ×3 (05:33→18:29)
[2021-01-14] MEDS: DEXTROSE 5% WATER 1,000 ML IV SCH ×2 (05:33→22:52)
[2021-01-14 07:15] LABS: CHLORIDE 119 mEq/L (98-107)
[2021-01-14 07:18] LABS: BASOPHILS % 0.1 % (0.0-2.0); EOSINOPHILS % 0.4 % (0.0-5.0); HEMATOCRIT. 23.1 % (42.0-52.0); HEMOGLOBIN. 7.6 g/dL (14.0-18.0); LYMPHOCYTES % 9.4 % (20.0-50.0); MEAN CORPUSCULAR HEMOGLOBIN 26.3 pg (28.0-32.0); MEAN CORPUSCULAR VOLUME 80.1 fL (80.0-94.0); MEAN PLATELET VOLUME 9.7 fl (7.4-10.4); MONOCYTES % 3.1 % (2.0-8.0); PLATELET 248 x1000/uL (130-400); RED BLOOD CELL COUNT 2.88 mill/uL (4.7-6.1); RED CELL DISTRIBUTION WIDTH 21.9 % (11.6-14.6)
[2021-01-14] MEDS: FERROUS SULFATE 325MG TABLET PO SCH ×2 (08:15→13:09)
[2021-01-14] MEDS: EPOETIN ALFA-EPBX 10,000 UNIT/ML VIAL SUBCUT SCH (21:43)
[2021-01-15] VITALS (18 sets, daily range): BP systolic 109–143; BP diastolic 47–96
[2021-01-15] MEDS: ACETYLCYSTEINE 100MG/ML 10% VIAL 4ML INH SCH ×3 (00:50→16:20)
[2021-01-15] MEDS: IPRATROPIUM/ALBUTEROL 0.5-3(2.5)MG/3ML NEB HHN SCH ×6 (00:50→21:08)
[2021-01-15] MEDS: DOCUSATE SODIUM SUGAR FREE 100MG/10ML UDC NG SCH ×3 (05:14→22:00)
[2021-01-15] MEDS: METOCLOPRAMIDE HCL 10MG/2ML VIAL IV SCH ×4 (05:27→23:59)
[2021-01-15] MEDS: DILTIAZEM HCL 30MG TABLET PO SCH ×3 (05:27→22:21)
[2021-01-15 08:54] LABS: HEMATOCRIT. 23.6 % (42.0-52.0); HEMOGLOBIN. 7.4 g/dL (14.0-18.0); MEAN CORPUSCULAR HEMOGLOBIN 25.8 pg (28.0-32.0); MEAN CORPUSCULAR VOLUME 82.2 fL (80.0-94.0); MEAN PLATELET VOLUME 9.5 fl (7.4-10.4); PLATELET 222 x1000/uL (130-400); RED BLOOD CELL COUNT 2.87 mill/uL (4.7-6.1); RED CELL DISTRIBUTION WIDTH 22.1 % (11.6-14.6)
[2021-01-15 09:00] LABS: CHLORIDE 118 mEq/L (98-107); INR 1.2; PARTIAL THROMBOPLASTIN TIME 33.2 sec (23.4-31.0)
[2021-01-15] MEDS: POLYETHYLENE GLYCOL 3350 (17GM) 1 DOSE PACK PO SCH (09:00)
[2021-01-15] MEDS: PANTOPRAZOLE SODIUM 40 MG/VIAL IV SCH (10:00)
[2021-01-15] MEDS: FERROUS SULFATE 325MG TABLET PO SCH ×4 (10:00→17:55)
[2021-01-15] MEDS ORDERED: CEFEPIME 2,000 MG in DEXT 5% WATER 100 ML IV SCH (10:30)
[2021-01-15] MEDS ORDERED: MEROPENEM 1,000 MG in SODIUM CHLORIDE 0.9% 100 ML IV SCH (12:00)
[2021-01-15 14:41] LABS: PLATELET ESTIMATE NORMAL
[2021-01-15] MEDS: DEXTROSE 5% WATER 1,000 ML IV SCH (15:30)
[2021-01-15] MEDS ORDERED: CEFTRIAXONE 2 G PREMIX 50 ML IV SCH (16:00)
[2021-01-15] MEDS: CEFTRIAXONE 2 G in DEXTROSE 5% WATER 50 ML IV SCH (17:54)
[2021-01-15] MEDS: AZITHROMYCIN 500 MG in DEXT 5% WATER 250 ML IV SCH (17:55)
[2021-01-16] VITALS (12 sets, daily range): BP systolic 122–146; BP diastolic 48–83
[2021-01-16] MEDS: IPRATROPIUM/ALBUTEROL 0.5-3(2.5)MG/3ML NEB HHN SCH ×6 (00:58→20:46)
[2021-01-16] MEDS: ACETYLCYSTEINE 100MG/ML 10% VIAL 4ML INH SCH ×3 (00:58→16:09)
[2021-01-16] MEDS: METOCLOPRAMIDE HCL 10MG/2ML VIAL IV SCH ×2 (05:18→11:45)
[2021-01-16] MEDS: DILTIAZEM HCL 30MG TABLET PO SCH ×3 (05:18→22:01)
[2021-01-16] MEDS: DOCUSATE SODIUM SUGAR FREE 100MG/10ML UDC NG SCH (07:00)
[2021-01-16] MEDS: POLYETHYLENE GLYCOL 3350 (17GM) 1 DOSE PACK PO SCH (09:00)
[2021-01-16] MEDS: FERROUS SULFATE 325MG TABLET PO SCH ×3 (09:21→17:16)
[2021-01-16] MEDS: PANTOPRAZOLE SODIUM 40 MG/VIAL IV SCH (09:21)
[2021-01-16] MEDS: DEXTROSE 5% WATER 1,000 ML IV SCH (10:31)
[2021-01-16] MEDS ORDERED: POLYETHYLENE GLYCOL 3350 (17GM) 1 DOSE PACK PO PRN (13:15)
[2021-01-16] MEDS: AZITHROMYCIN 500 MG TABLET PO SCH (14:38)
[2021-01-16] MEDS: CEFTRIAXONE 2 G in DEXTROSE 5% WATER 50 ML IV SCH (17:16)
[2021-01-16] MEDS: ACETAMINOPHEN 325MG TABLET PO PRN (17:20)
[2021-01-16] MEDS ORDERED: MORPHINE SULFATE 2 MG/ML CPJ (NOT FOR IM USE) IV PRN (18:30)
[2021-01-16] MEDS: EPOETIN ALFA-EPBX 10,000 UNIT/ML VIAL SUBCUT SCH (21:21)
[2021-01-16] MEDS ORDERED: DOCUSATE SODIUM SUGAR FREE 100MG/10ML UDC NG PRN (22:00)
[2021-01-17] VITALS (12 sets, daily range): BP systolic 118–150; BP diastolic 45–83
[2021-01-17] MEDS: IPRATROPIUM/ALBUTEROL 0.5-3(2.5)MG/3ML NEB HHN SCH ×6 (00:49→20:25)
[2021-01-17 05:38] LABS: HEMATOCRIT. 24.8 % (42.0-52.0); HEMOGLOBIN. 8.1 g/dL (14.0-18.0); MEAN CORPUSCULAR HEMOGLOBIN 26.4 pg (28.0-32.0); MEAN CORPUSCULAR VOLUME 81.4 fL (80.0-94.0); MEAN PLATELET VOLUME 9.3 fl (7.4-10.4); PLATELET 233 x1000/uL (130-400); RED BLOOD CELL COUNT 3.05 mill/uL (4.7-6.1); RED CELL DISTRIBUTION WIDTH 21.7 % (11.6-14.6)
[2021-01-17] MEDS: DEXTROSE 5% WATER 1,000 ML IV SCH ×2 (05:44→19:10)
[2021-01-17] MEDS: DILTIAZEM HCL 30MG TABLET PO SCH ×3 (05:45→22:00)
[2021-01-17 05:55] LABS: CHLORIDE 115 mEq/L (98-107)
[2021-01-17] MEDS: PANTOPRAZOLE SODIUM 40 MG/VIAL IV SCH (09:19)
[2021-01-17] MEDS: FERROUS SULFATE 325MG TABLET PO SCH ×3 (09:19→19:21)
[2021-01-17] MEDS: ACETAMINOPHEN 325MG TABLET PO PRN (09:35)
[2021-01-17] MEDS: AZITHROMYCIN 500 MG TABLET PO SCH (12:06)
[2021-01-17 12:55] LABS: PLATELET ESTIMATE NORMAL
[2021-01-17] MEDS: CEFTRIAXONE 2 G in DEXTROSE 5% WATER 50 ML IV SCH (19:10)
[2021-01-18] VITALS (11 sets, daily range): BP systolic 110–131; BP diastolic 53–78
[2021-01-18] MEDS: IPRATROPIUM/ALBUTEROL 0.5-3(2.5)MG/3ML NEB HHN SCH ×6 (00:17→20:09)
[2021-01-18] MEDS: DILTIAZEM HCL 30MG TABLET PO SCH ×3 (05:31→21:27)
[2021-01-18] MEDS: PANTOPRAZOLE SODIUM 40 MG/VIAL IV SCH (08:59)
[2021-01-18] MEDS: ACETAMINOPHEN 650MG/20.3ML UDC PO PRN (08:59)
[2021-01-18] MEDS: FERROUS SULFATE 325MG TABLET PO SCH ×3 (09:00→17:13)
[2021-01-18] MEDS: DEXTROSE 5% WATER 1,000 ML IV SCH (09:34)
[2021-01-18 11:23] LABS: CHLORIDE 111 mEq/L (98-107)
[2021-01-18 11:25] LABS: HEMATOCRIT. 25.6 % (42.0-52.0); HEMOGLOBIN. 8.4 g/dL (14.0-18.0); MEAN CORPUSCULAR HEMOGLOBIN 26.5 pg (28.0-32.0); MEAN CORPUSCULAR VOLUME 80.5 fL (80.0-94.0); MEAN PLATELET VOLUME 9.2 fl (7.4-10.4); PLATELET 254 x1000/uL (130-400); RED BLOOD CELL COUNT 3.18 mill/uL (4.7-6.1); RED CELL DISTRIBUTION WIDTH 21.7 % (11.6-14.6)
[2021-01-18] MEDS: APIXABAN 2.5 MG TABLET PO SCH (14:40)
[2021-01-18] MEDS: CEFTRIAXONE 2 G in DEXTROSE 5% WATER 50 ML IV SCH (17:13)
[2021-01-18 17:39] LABS: PLATELET ESTIMATE NORMAL
[2021-01-18] MEDS ORDERED: NALOXONE HCL 0.4MG/ML VIAL IV PRN (17:45)
[2021-01-18 19:28] LABS: CLARITY URINE CLEAR (CLEAR); COLOR URINE DARK YELLOW (YELLOW); KETONES URINE NEGATIVE (NEGATIVE); LEUKOCYTE ESTERASE URINE NEGATIVE (NEGATIVE); NITRITE URINE NEGATIVE (NEGATIVE); OCCULT BLOOD URINE TRACE (NEGATIVE); PH URINE 5.5 (4.5-8.0); PROTEIN URINE 1+ (NEGATIVE); SPECIFIC GRAVITY URINE 1.018 (1.005-1.030); UROBILINOGEN URINE 0.2 E.U./dL (0.2-1.0)
[2021-01-18] MEDS: METOCLOPRAMIDE HCL 10MG/2ML VIAL IV SCH (21:28)
[2021-01-19] VITALS (12 sets, daily range): BP systolic 111–140; BP diastolic 57–72
[2021-01-19] MEDS: IPRATROPIUM/ALBUTEROL 0.5-3(2.5)MG/3ML NEB HHN SCH ×6 (00:01→20:28)
[2021-01-19] MEDS: MEROPENEM 500 MG in SODIUM CHLORIDE 0.9% 50 ML IV SCH ×3 (00:21→17:40)
[2021-01-19] MEDS: METOCLOPRAMIDE HCL 10MG/2ML VIAL IV SCH ×3 (04:49→21:00)
[2021-01-19] MEDS: DILTIAZEM HCL 30MG TABLET PO SCH ×3 (05:31→22:00)
[2021-01-19 06:03] LABS: HEMATOCRIT. 26.5 % (42.0-52.0); HEMOGLOBIN. 8.5 g/dL (14.0-18.0); MEAN CORPUSCULAR VOLUME 80.9 fL (80.0-94.0); MEAN PLATELET VOLUME 9.1 fl (7.4-10.4); PLATELET 248 x1000/uL (130-400); RED BLOOD CELL COUNT 3.28 mill/uL (4.7-6.1); RED CELL DISTRIBUTION WIDTH 21.8 % (11.6-14.6)
[2021-01-19 06:16] LABS: CHLORIDE 108 mEq/L (98-107)
[2021-01-19] MEDS: APIXABAN 2.5 MG TABLET PO SCH (08:42)
[2021-01-19] MEDS: FERROUS SULFATE 325MG TABLET PO SCH ×2 (08:42→13:53)
[2021-01-19] MEDS: PANTOPRAZOLE SODIUM 40 MG/VIAL IV SCH (08:42)
[2021-01-19 18:59] LABS: PLATELET ESTIMATE NORMAL
[2021-01-19] MEDS: EPOETIN ALFA-EPBX 10,000 UNIT/ML VIAL SUBCUT SCH (21:00)
[2021-01-19] MEDS ORDERED: BISACODYL 10MG SUPP PR NR (21:00)
[2021-01-20] VITALS (13 sets, daily range): BP systolic 112–129; BP diastolic 59–70
[2021-01-20] MEDS: IPRATROPIUM/ALBUTEROL 0.5-3(2.5)MG/3ML NEB HHN SCH ×6 (00:01→21:26)
[2021-01-20] MEDS: MEROPENEM 500 MG in SODIUM CHLORIDE 0.9% 50 ML IV SCH ×3 (00:10→18:09)
[2021-01-20] MEDS: METOCLOPRAMIDE HCL 10MG/2ML VIAL IV SCH ×3 (04:57→20:29)
[2021-01-20] MEDS: DILTIAZEM HCL 30MG TABLET PO SCH ×3 (05:23→20:31)
[2021-01-20 06:15] LABS: HEMATOCRIT. 25.5 % (42.0-52.0); HEMOGLOBIN. 8.3 g/dL (14.0-18.0); MEAN CORPUSCULAR HEMOGLOBIN 26.1 pg (28.0-32.0); MEAN CORPUSCULAR VOLUME 79.6 fL (80.0-94.0); MEAN PLATELET VOLUME 8.7 fl (7.4-10.4); PLATELET 282 x1000/uL (130-400); RED CELL DISTRIBUTION WIDTH 21.8 % (11.6-14.6)
[2021-01-20 06:38] LABS: CHLORIDE 109 mEq/L (98-107)
[2021-01-20] MEDS: PANTOPRAZOLE SODIUM 40 MG/VIAL IV SCH (08:34)
[2021-01-20] MEDS: DOCUSATE SODIUM SUGAR FREE 100MG/10ML UDC NG SCH (08:35)
[2021-01-20] MEDS: APIXABAN 2.5 MG TABLET PO SCH (08:35)
[2021-01-20 14:14] LABS: PLATELET ESTIMATE NORMAL
[2021-01-20 20:20] LABS: CREATINE KINASE 80 IU/L (39-308)
[2021-01-21] VITALS (14 sets, daily range): BP systolic 106–140; BP diastolic 50–74
[2021-01-21] MEDS: IPRATROPIUM/ALBUTEROL 0.5-3(2.5)MG/3ML NEB HHN SCH ×6 (00:15→20:16)
[2021-01-21] MEDS: MEROPENEM 500 MG in SODIUM CHLORIDE 0.9% 50 ML IV SCH ×4 (01:09→23:24)
[2021-01-21] MEDS: METOCLOPRAMIDE HCL 10MG/2ML VIAL IV SCH ×3 (05:38→21:36)
[2021-01-21] MEDS: DILTIAZEM HCL 30MG TABLET PO SCH ×3 (05:38→21:37)
[2021-01-21 06:18] LABS: BASOPHILS % 1.1 % (0.0-2.0); EOSINOPHILS % 1.6 % (0.0-5.0); HEMATOCRIT. 25.1 % (42.0-52.0); HEMOGLOBIN. 8.4 g/dL (14.0-18.0); LYMPHOCYTES % 10.5 % (20.0-50.0); MEAN CORPUSCULAR HEMOGLOBIN 26.1 pg (28.0-32.0); MEAN CORPUSCULAR VOLUME 78.4 fL (80.0-94.0); MEAN PLATELET VOLUME 8.7 fl (7.4-10.4); NEUTROPHILS % 78.8 % (40.0-76.0); PLATELET 267 x1000/uL (130-400); RED CELL DISTRIBUTION WIDTH 22.2 % (11.6-14.6)
[2021-01-21 06:21] LABS: CHLORIDE 110 mEq/L (98-107)
[2021-01-21] MEDS: PANTOPRAZOLE SODIUM 40 MG/VIAL IV SCH (09:15)
[2021-01-21] MEDS: DOCUSATE SODIUM SUGAR FREE 100MG/10ML UDC NG SCH ×3 (09:15→21:37)
[2021-01-21] MEDS: APIXABAN 2.5 MG TABLET PO SCH ×2 (09:15→16:20)
[2021-01-22] VITALS (12 sets, daily range): BP systolic 118–176; BP diastolic 51–89
[2021-01-22] MEDS: IPRATROPIUM/ALBUTEROL 0.5-3(2.5)MG/3ML NEB HHN SCH ×7 (00:06→23:42)
[2021-01-22] MEDS: METOCLOPRAMIDE HCL 10MG/2ML VIAL IV SCH ×3 (05:15→21:16)
[2021-01-22] MEDS: DOCUSATE SODIUM SUGAR FREE 100MG/10ML UDC NG SCH ×4 (05:16→21:15)
[2021-01-22] MEDS: DILTIAZEM HCL 30MG TABLET PO SCH ×3 (05:16→21:16)
[2021-01-22 06:47] LABS: HEMATOCRIT. 26.4 % (42.0-52.0); HEMOGLOBIN. 8.5 g/dL (14.0-18.0); MEAN CORPUSCULAR HEMOGLOBIN 25.9 pg (28.0-32.0); MEAN PLATELET VOLUME 8.3 fl (7.4-10.4); PLATELET 315 x1000/uL (130-400); RED CELL DISTRIBUTION WIDTH 21.7 % (11.6-14.6)
[2021-01-22 06:55] LABS: CHLORIDE 111 mEq/L (98-107)
[2021-01-22] MEDS: MEROPENEM 500 MG in SODIUM CHLORIDE 0.9% 50 ML IV SCH ×3 (08:30→23:09)
[2021-01-22] MEDS: PANTOPRAZOLE SODIUM 40 MG/VIAL IV SCH (08:30)
[2021-01-22] MEDS: APIXABAN 2.5 MG TABLET PO SCH ×2 (08:30→17:04)
[2021-01-22] MEDS ORDERED: POLYETHYLENE GLYCOL 3350 (17GM) 1 DOSE PACK PO SCH (09:00)
[2021-01-22] MEDS: ACETAMINOPHEN 650MG/20.3ML UDC PO PRN (17:18)
[2021-01-22] MEDS: CIPROFLOXACIN 0.3% OPHTH SOLN 2.5ML LEFTEYE SCH (21:10)
[2021-01-23] VITALS (15 sets, daily range): BP systolic 116–142; BP diastolic 58–82
[2021-01-23] MEDS: IPRATROPIUM/ALBUTEROL 0.5-3(2.5)MG/3ML NEB HHN SCH ×5 (04:16→20:38)
[2021-01-23] MEDS: MORPHINE SULFATE 2 MG/ML CPJ (NOT FOR IM USE) IV PRN ×2 (04:32→15:15)
[2021-01-23] MEDS: DILTIAZEM HCL 30MG TABLET PO SCH ×3 (05:01→21:10)
[2021-01-23] MEDS: DOCUSATE SODIUM SUGAR FREE 100MG/10ML UDC NG SCH ×4 (05:02→21:10)
[2021-01-23] MEDS: METOCLOPRAMIDE HCL 10MG/2ML VIAL IV SCH ×3 (05:02→21:10)
[2021-01-23 05:25] LABS: PLATELET ESTIMATE NORMAL
[2021-01-23 06:58] LABS: CHLORIDE 110 mEq/L (98-107)
[2021-01-23 07:09] LABS: HEMATOCRIT. 25.4 % (42.0-52.0); HEMOGLOBIN. 8.3 g/dL (14.0-18.0); MEAN CORPUSCULAR VOLUME 79.5 fL (80.0-94.0); MEAN PLATELET VOLUME 8.2 fl (7.4-10.4); PLATELET 325 x1000/uL (130-400); RED BLOOD CELL COUNT 3.19 mill/uL (4.7-6.1); RED CELL DISTRIBUTION WIDTH 21.8 % (11.6-14.6)
[2021-01-23] MEDS: PANTOPRAZOLE SODIUM 40 MG/VIAL IV SCH (08:06)
[2021-01-23] MEDS: APIXABAN 2.5 MG TABLET PO SCH ×2 (08:06→16:30)
[2021-01-23] MEDS: MEROPENEM 500 MG in SODIUM CHLORIDE 0.9% 50 ML IV SCH ×3 (08:07→23:05)
[2021-01-23] MEDS: CIPROFLOXACIN 0.3% OPHTH SOLN 2.5ML LEFTEYE SCH ×4 (08:08→21:12)
[2021-01-23 12:06] LABS: PLATELET ESTIMATE NORMAL
[2021-01-24] VITALS (13 sets, daily range): BP systolic 109–141; BP diastolic 58–82
[2021-01-24] MEDS: IPRATROPIUM/ALBUTEROL 0.5-3(2.5)MG/3ML NEB HHN SCH ×6 (00:32→20:41)
[2021-01-24] MEDS: METOCLOPRAMIDE HCL 10MG/2ML VIAL IV SCH ×3 (04:57→21:19)
[2021-01-24] MEDS: DILTIAZEM HCL 30MG TABLET PO SCH ×3 (05:10→21:11)
[2021-01-24] MEDS: DOCUSATE SODIUM SUGAR FREE 100MG/10ML UDC NG SCH ×4 (05:10→21:11)
[2021-01-24] MEDS: APIXABAN 2.5 MG TABLET PO SCH ×2 (08:42→18:00)
[2021-01-24] MEDS: PANTOPRAZOLE SODIUM 40 MG/VIAL IV SCH (08:42)
[2021-01-24] MEDS: CIPROFLOXACIN 0.3% OPHTH SOLN 2.5ML LEFTEYE SCH ×4 (08:43→21:20)
[2021-01-24 10:14] LABS: HEMATOCRIT. 27.2 % (42.0-52.0); HEMOGLOBIN. 8.7 g/dL (14.0-18.0); MEAN CORPUSCULAR HEMOGLOBIN 25.5 pg (28.0-32.0); MEAN CORPUSCULAR VOLUME 79.6 fL (80.0-94.0); MEAN PLATELET VOLUME 7.8 fl (7.4-10.4); PLATELET 367 x1000/uL (130-400); RED BLOOD CELL COUNT 3.42 mill/uL (4.7-6.1); RED CELL DISTRIBUTION WIDTH 21.6 % (11.6-14.6)
[2021-01-24 10:18] LABS: CHLORIDE 112 mEq/L (98-107)
[2021-01-24 12:53] LABS: PLATELET ESTIMATE NORMAL
[2021-01-25] VITALS (15 sets, daily range): BP systolic 112–149; BP diastolic 66–87
[2021-01-25] MEDS: IPRATROPIUM/ALBUTEROL 0.5-3(2.5)MG/3ML NEB HHN SCH ×6 (00:46→20:30)
[2021-01-25] MEDS: DOCUSATE SODIUM SUGAR FREE 100MG/10ML UDC NG SCH ×4 (05:52→22:00)
[2021-01-25] MEDS: METOCLOPRAMIDE HCL 10MG/2ML VIAL IV SCH ×3 (05:52→21:59)
[2021-01-25] MEDS: DILTIAZEM HCL 30MG TABLET PO SCH (05:52)
[2021-01-25 06:37] LABS: HEMATOCRIT. 28.9 % (42.0-52.0); HEMOGLOBIN. 9.3 g/dL (14.0-18.0); MEAN CORPUSCULAR HEMOGLOBIN 25.3 pg (28.0-32.0); MEAN PLATELET VOLUME 7.8 fl (7.4-10.4); PLATELET 398 x1000/uL (130-400); RED BLOOD CELL COUNT 3.66 mill/uL (4.7-6.1)
[2021-01-25 06:49] LABS: CHLORIDE 112 mEq/L (98-107)
[2021-01-25] MEDS: APIXABAN 2.5 MG TABLET PO SCH ×2 (08:52→17:33)
[2021-01-25] MEDS: PANTOPRAZOLE SODIUM 40 MG/VIAL IV SCH (08:52)
[2021-01-25] MEDS: CIPROFLOXACIN 0.3% OPHTH SOLN 2.5ML LEFTEYE SCH ×4 (08:58→21:59)
[2021-01-25] MEDS ORDERED: SODIUM CHLORIDE 0.9% 500 ML IV NR (12:30)
[2021-01-25] MEDS ORDERED: SODIUM CHLORIDE 0.9% 1000ML BAG (SEPSIS BOLUS) IV ONE (12:30)
[2021-01-25] MEDS ORDERED: MORPHINE SULFATE 2 MG/ML CPJ (NOT FOR IM USE) IV PRN (12:45)
[2021-01-25 13:02] LABS: PLATELET ESTIMATE NORMAL
[2021-01-25] MEDS: DILTIAZEM HCL 60MG TABLET PO SCH ×2 (13:24→22:02)
[2021-01-26] VITALS (12 sets, daily range): BP systolic 116–142; BP diastolic 59–84
[2021-01-26] MEDS: IPRATROPIUM/ALBUTEROL 0.5-3(2.5)MG/3ML NEB HHN SCH ×6 (00:31→20:36)
[2021-01-26] MEDS: DOCUSATE SODIUM SUGAR FREE 100MG/10ML UDC NG SCH ×3 (04:51→21:30)
[2021-01-26] MEDS: METOCLOPRAMIDE HCL 10MG/2ML VIAL IV SCH ×3 (04:51→21:30)
[2021-01-26] MEDS: DILTIAZEM HCL 60MG TABLET PO SCH ×3 (04:51→21:30)
[2021-01-26 06:37] LABS: HEMATOCRIT. 28.4 % (42.0-52.0); MEAN CORPUSCULAR HEMOGLOBIN 25.5 pg (28.0-32.0); MEAN CORPUSCULAR VOLUME 80.7 fL (80.0-94.0); MEAN PLATELET VOLUME 7.7 fl (7.4-10.4); PLATELET 347 x1000/uL (130-400); RED BLOOD CELL COUNT 3.52 mill/uL (4.7-6.1); RED CELL DISTRIBUTION WIDTH 21.6 % (11.6-14.6)
[2021-01-26 06:43] LABS: CHLORIDE 110 mEq/L (98-107)
[2021-01-26] MEDS: CIPROFLOXACIN 0.3% OPHTH SOLN 2.5ML LEFTEYE SCH ×4 (08:09→21:31)
[2021-01-26] MEDS: PANTOPRAZOLE SODIUM 40 MG/VIAL IV SCH (08:09)
[2021-01-26] MEDS: APIXABAN 2.5 MG TABLET PO SCH ×2 (08:09→17:11)
[2021-01-26] MEDS: ACETAMINOPHEN 650MG/20.3ML UDC PO PRN (09:05)
[2021-01-26 18:55] LABS: PLATELET ESTIMATE NORMAL
[2021-01-26 20:49] LABS: CLARITY URINE CLEAR (CLEAR); COLOR URINE YELLOW (YELLOW); KETONES URINE NEGATIVE (NEGATIVE); LEUKOCYTE ESTERASE URINE TRACE (NEGATIVE); NITRITE URINE NEGATIVE (NEGATIVE); OCCULT BLOOD URINE NEGATIVE (NEGATIVE); PH URINE >=9.0 (4.5-8.0); PROTEIN URINE TRACE (NEGATIVE); SPECIFIC GRAVITY URINE 1.018 (1.005-1.030)
[2021-01-27] VITALS (11 sets, daily range): BP systolic 119–160; BP diastolic 55–73
[2021-01-27] MEDS: IPRATROPIUM/ALBUTEROL 0.5-3(2.5)MG/3ML NEB HHN SCH ×5 (00:34→20:40)
[2021-01-27] MEDS: DOCUSATE SODIUM SUGAR FREE 100MG/10ML UDC NG SCH ×3 (06:16→20:51)
[2021-01-27] MEDS: METOCLOPRAMIDE HCL 10MG/2ML VIAL IV SCH ×3 (06:16→20:54)
[2021-01-27] MEDS: DILTIAZEM HCL 60MG TABLET PO SCH ×4 (06:21→23:30)
[2021-01-27 06:28] LABS: CHLORIDE 111 mEq/L (98-107)
[2021-01-27] MEDS: APIXABAN 2.5 MG TABLET PO SCH ×2 (09:05→16:23)
[2021-01-27] MEDS: CIPROFLOXACIN 0.3% OPHTH SOLN 2.5ML LEFTEYE SCH ×4 (09:05→20:51)
[2021-01-27] MEDS: PANTOPRAZOLE SODIUM 40 MG/VIAL IV SCH (09:05)
[2021-01-27] MEDS ORDERED: NALOXONE HCL 0.4MG/ML VIAL IV PRN (20:15)
[2021-01-28] VITALS (12 sets, daily range): BP systolic 116–137; BP diastolic 57–76
[2021-01-28] MEDS: IPRATROPIUM/ALBUTEROL 0.5-3(2.5)MG/3ML NEB HHN SCH ×5 (00:25→20:24)
[2021-01-28] MEDS: METOCLOPRAMIDE HCL 10MG/2ML VIAL IV SCH ×3 (04:13→20:28)
[2021-01-28] MEDS: DOCUSATE SODIUM SUGAR FREE 100MG/10ML UDC NG SCH ×3 (05:51→21:15)
[2021-01-28] MEDS: DILTIAZEM HCL 60MG TABLET PO SCH ×4 (05:51→23:37)
[2021-01-28 07:14] LABS: CHLORIDE 110 mEq/L (98-107)
[2021-01-28] MEDS: CIPROFLOXACIN 0.3% OPHTH SOLN 2.5ML LEFTEYE SCH ×4 (08:49→20:24)
[2021-01-28] MEDS: APIXABAN 2.5 MG TABLET PO SCH ×2 (08:49→17:24)
[2021-01-28] MEDS: PANTOPRAZOLE SODIUM 40 MG/VIAL IV SCH (08:49)
[2021-01-29] VITALS (19 sets, daily range): BP systolic 115–138; BP diastolic 50–81
[2021-01-29] MEDS: IPRATROPIUM/ALBUTEROL 0.5-3(2.5)MG/3ML NEB HHN SCH ×6 (00:54→21:07)
[2021-01-29] MEDS: METOCLOPRAMIDE HCL 10MG/2ML VIAL IV SCH ×3 (04:40→22:17)
[2021-01-29] MEDS: DILTIAZEM HCL 60MG TABLET PO SCH ×3 (05:38→17:22)
[2021-01-29] MEDS: DOCUSATE SODIUM SUGAR FREE 100MG/10ML UDC NG SCH ×3 (05:38→22:18)
[2021-01-29] MEDS: APIXABAN 2.5 MG TABLET PO SCH ×2 (10:13→17:04)
[2021-01-29] MEDS: PANTOPRAZOLE SODIUM 40 MG/VIAL IV SCH (10:13)
[2021-01-29] MEDS: CIPROFLOXACIN 0.3% OPHTH SOLN 2.5ML LEFTEYE SCH ×4 (10:16→22:18)
== END 2021-01-29 23:56 | disposition short-term general hospital (02) | DRG 3 ==
LOC: ER 12:14 → ENRESERV 17:06 → 8WST 17:20 → MICUNO 12-23 11:27 → 8WST 12-27 00:34 → MICUSO 12-31 11:50 → 5EST 01-11 19:10
PROVIDERS: ADMIT Internal Medicine; ATTEND Internal Medicine
PROC: 0RG2071 Fusion of 2 or more Cervical Vertebral Joints with Autologous Tissue Substitute, Posterior Approach, Posterior Column, Open Approach (ICD-10-PCS; principal; 2020-12-23)
PROC: 4A11X4G Monitoring of Peripheral Nervous Electrical Activity, Intraoperative, External Approach (ICD-10-PCS; 2020-12-23)
PROC: 5A1955Z Respiratory Ventilation, Greater than 96 Consecutive Hours (ICD-10-PCS; 2020-12-31)
PROC: 30233K1 Transfusion of Nonautologous Frozen Plasma into Peripheral Vein, Percutaneous Approach (ICD-10-PCS; 2020-12-31)
PROC: 30233N1 Transfusion of Nonautologous Red Blood Cells into Peripheral Vein, Percutaneous Approach (ICD-10-PCS; 2020-12-31)
PROC: 0BH17EZ Insertion of Endotracheal Airway into Trachea, Via Natural or Artificial Opening (ICD-10-PCS; 2020-12-31)
PROC: 00CU0ZZ Extirpation of Matter from Spinal Canal, Open Approach (ICD-10-PCS; 2021-01-05)
PROC: 0B110F4 Bypass Trachea to Cutaneous with Tracheostomy Device, Open Approach (ICD-10-PCS; 2021-01-08)
PROC: 0DH63UZ Insertion of Feeding Device into Stomach, Percutaneous Approach (ICD-10-PCS; 2021-01-10)
PROC: 0DB78ZX Excision of Stomach, Pylorus, Via Natural or Artificial Opening Endoscopic, Diagnostic (ICD-10-PCS; 2021-01-10)
DX: I13.10 Hypertensive heart and chronic kidney disease without heart failure, with stage 1 through stage 4 chronic kidney disease, or unspecified chronic kidney disease (principal); I50.43 Acute on chronic combined systolic (congestive) and diastolic (congestive) heart failure; G82.50 Quadriplegia, unspecified; E43 Unspecified severe protein-calorie malnutrition; J15.6 Pneumonia due to other Gram-negative bacteria; A41.59 Other Gram-negative sepsis; J96.00 Acute respiratory failure, unspecified whether with hypoxia or hypercapnia; N17.9 Acute kidney failure, unspecified; I48.92 Unspecified atrial flutter; I42.9 Cardiomyopathy, unspecified; G99.2 Myelopathy in diseases classified elsewhere; R57.9 Shock, unspecified; D68.59 Other primary thrombophilia; E87.0 Hyperosmolality and hypernatremia; I48.20 Chronic atrial fibrillation, unspecified; I82.B12 Acute embolism and thrombosis of left subclavian vein; G95.20 Unspecified cord compression; Z99.11 Dependence on respirator [ventilator] status; R58 Hemorrhage, not elsewhere classified; M48.02 Spinal stenosis, cervical region; M48.061 Spinal stenosis, lumbar region without neurogenic claudication; D50.9 Iron deficiency anemia, unspecified; D72.821 Monocytosis (symptomatic); E78.5 Hyperlipidemia, unspecified; I25.10 Atherosclerotic heart disease of native coronary artery without angina pectoris; I27.20 Pulmonary hypertension, unspecified; Z96.653 Presence of artificial knee joint, bilateral; N18.9 Chronic kidney disease, unspecified; M48.04 Spinal stenosis, thoracic region; E66.01 Morbid (severe) obesity due to excess calories; D75.839 Thrombocytosis, unspecified; E86.1 Hypovolemia; I34.0 Nonrheumatic mitral (valve) insufficiency; R31.9 Hematuria, unspecified; Z60.2 Problems related to living alone; M43.16 Spondylolisthesis, lumbar region; M51.36 Other intervertebral disc degeneration, lumbar region; K29.30 Chronic superficial gastritis without bleeding; L89.816 Pressure-induced deep tissue damage of head; L89.896 Pressure-induced deep tissue damage of other site; Z20.822 Contact with and (suspected) exposure to COVID-19; Y83.8 Other surgical procedures as the cause of abnormal reaction of the patient, or of later complication, without mention of misadventure at the time of the procedure; Z95.0 Presence of cardiac pacemaker; Z90.5 Acquired absence of kidney; Z87.891 Personal history of nicotine dependence; Z85.528 Personal history of other malignant neoplasm of kidney; Z79.899 Other long term (current) drug therapy; Z79.82 Long term (current) use of aspirin; Z79.01 Long term (current) use of anticoagulants; Z68.33 Body mass index [BMI] 33.0-33.9, adult; Y92.89 Other specified places as the place of occurrence of the external cause
CPT/HCPCS: 36415; 36600; 70551; 71045; 71250; 72040; 72141; 72146; 72148; 74018; 74176; 76000; 76770; 80048; 80053; 80061; 80202; 80305; 81003; 82040; 82270; 82375; 82550; 82607; 82728; 82805; 82962; 83036; 83540; 83550; 83605; 83735; 83880; 84100; 84134; 84145; 84155; 84165; 84443; 84478; 84484; 85014; 85018; 85025; 85044; 85049; 85384; 86850; 86900; 86920; 86927; 87070; 87077; 87186; 87426; 87449; 88304; 88305; 88311; 88312; 88313; 93005; 93306; 93880; 93971; 94003; 94640; 95925; 95926; 95928; 95929; 97110; 97116; 97162; 97164; 97166; 97530; 99285; A6261; C1713; C9113; J0282; J0360; J0456; J0690; J0696; J0885; J1100; J1170; J1265; J1580; J1650; J1940; J2185; J2250; J2270; J2370; J2405; J2543; J2704; J2710; J2720; J2765; J3010; J3370; J3475; J3480; J3490; J7040; J7050; J7060; J7070; J7121; J7608; L0172; P9016; P9017; P9047